=== PATIENT | male | born 1960 | race Caucasian/White ===

== ENCOUNTER 2016-08-24 16:19 | Emergency (ER) | payer BC ==
[~2016-08-24 16:19] MED LIST: /CELE20CA PO; ADVIL; AMBI10TA OR; AUGM875T27 PO; BISO10TA2 OR; BISOPROLOL PO; COLA50CA3 PO; OXYC-208 PO; PAROXITINE PO; PAXI40TA OR; PERC5TAB8 OR; PRED20TA OR; PRIL40CA OR; TUSSSUS5 OR; VICODIN PO; ZITH500T OR; [UNRECOGNIZED DRUG - OTHER]; advil PO; astepro; bisoprolol PO
--- NOTE | 2016-08-24 17:10 | REP ---
CT Head without contrast HISTORY: Headache COMPARISON: None There is no intraparenchymal hemorrhage, acute infarct, mass or midline shift. The ventricular system is normal in appearance. There is no extra cerebral collection. There is no fracture. Mucosal thickening is present in the sphenoid sinus. IMPRESSION: There is no intracranial lesion. Signed by Huang Arauz MD 08/24/2016 04:59 P
--- NOTE | 2016-08-24 18:26 | REP ---
CT CERVICAL SPINE WITHOUT CONTRAST: HISTORY: Neck pain. There is no acute fracture or subluxation. Disc bulges are present at the C3-4 through C5-6 levels. There is minimal narrowing of the spinal canal. Uncinate process and or facet hypertrophy are present at the C2-3 through C5-6 levels. These findings produce minimal narrowing at the neural foramina. The C4-5 and C5-6 intervertebral discs are decreased in height consistent with disc degeneration. There is loss of the normal lordotic curve. IMPRESSION:1. There is no acute fracture or subluxation. 2. There is cervical spondylosis at the C2-3 through C5-6 levels. Signed by Huang Arauz MD 08/25/2016 08:47 A
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
== END 2016-08-24 19:06 | disposition home or self-care (01) ==
LOC: M ED 16:19
DX: S16.1XXA Strain of muscle, fascia and tendon at neck level, initial encounter (principal); H52.7 Unspecified disorder of refraction; E11.9 Type 2 diabetes mellitus without complications; K57.92 Diverticulitis of intestine, part unspecified, without perforation or abscess without bleeding; F41.9 Anxiety disorder, unspecified; I10 Essential (primary) hypertension; E78.00 Pure hypercholesterolemia, unspecified; G62.9 Polyneuropathy, unspecified; F17.210 Nicotine dependence, cigarettes, uncomplicated; Z79.899 Other long term (current) drug therapy; Z86.19 Personal history of other infectious and parasitic diseases; Z88.0 Allergy status to penicillin; V84.5XXA Driver of special agricultural vehicle injured in nontraffic accident, initial encounter; Y92.89 Other specified places as the place of occurrence of the external cause; Y93.89 Activity, other specified; Y99.9 Unspecified external cause status

== ENCOUNTER 2016-10-22 13:28 | Emergency (ER) | payer BC ==
[~2016-10-22] VITALS: Ht 185.4 cm; Wt 117.0 kg
[2016-10-22] MEDS ORDERED: LOSA100T36 (13:43)
[2016-10-22] MEDS ORDERED: METF500T4 (13:43)
[2016-10-22] MEDS ORDERED: GABA800T (13:43)
[2016-10-22] MEDS ORDERED: KETOROLAC 30 MG/ML VIAL (J1885) IV ONE (15:15)
[2016-10-22] MEDS ORDERED: ONDANSETRON 4MG/2ML VIAL (J2405) IV ONE ×2 (15:15→17:00)
[2016-10-22] MEDS ORDERED: GASTROGRAFIN SOLUTION 30ML PO ONE (15:35)
[2016-10-22] MEDS ORDERED: GASTROGRAFIN SOLUTION 30ML (Q9963) PO ONE (16:05)
[2016-10-22 16:06] LABS: ALBUMIN/GLOBULIN RATIO 1.11 (1.00-1.93); ALKALINE PHOSPHATASE 55 U/L (45-117); ALT/SGPT 47 U/L (12-78); AMYLASE 53 U/L (25-115); ANION GAP 8 MEQ/L (8-16); AST/SGOT 22 U/L (15-37); BILIRUBIN,DIRECT < 0.1 MG/DL (0.0-0.2); BILIRUBIN,TOTAL 0.3 MG/DL (0.2-1.0); BLOOD UREA NITROGEN 12 MG/DL (7-18); CALCIUM LEVEL 8.8 MG/DL (8.5-10.1); CARBON DIOXIDE LEVEL 26 MEQ/L (21-32); CHLORIDE LEVEL 106 MEQ/L (98-107); CREATININE FOR GFR 0.78 MG/DL (0.70-1.30); GLOMERULAR FILTRATION RATE > 60.0 (>56); GLUCOSE, FASTING 95 MG/DL (70-105); POTASSIUM SERUM 3.9 MEQ/L (3.5-5.1); SODIUM LEVEL 140 MEQ/L (136-145); TOTAL PROTEIN 7.6 GM/DL (6.4-8.2)
[2016-10-22 16:35] LABS: BASO % 0.3 % (0.0-1.0); EOS # 0.2 K/mm3 (0.0-0.50); EOS % 1.8 % (0.0-3.0); LARGE UNSTAINED CELL # 0.2 K/mm3 (0.0-0.4); LARGE UNSTAINED CELL % 1.9 % (0.0-4.0); LYMPH # 2.3 K/mm3 (1.5-4.5); LYMPH % 27.4 % (24.0-44.0); MEAN CORPUSCULAR HGB CONC 35.3 g/dl (32.0-36.5); MEAN CORPUSCULAR VOLUME 90.7 fl (80.0-96.0); MONO # 0.6 K/mm3 (0.0-0.8); NEUTROPHILS # 5.3 K/mm3 (1.8-7.7); NEUTROPHILS % 61.7 % (36.0-66.0); PLATELET COUNT, AUTOMATED 210 k/mm3 (150-450); RED CELL DISTRIBUTION WIDTH 13.3 % (11.5-14.5); WHITE BLOOD COUNT 8.5 K/mm3 (4.0-10.0)
[2016-10-22] MEDS ORDERED: MORPHINE 4 MG/ML 1ML SYRINGE IV ONE (16:45)
[2016-10-22] MEDS ORDERED: METOCLOPRAMIDE INJ 10MG/2ML VIAL (J2765) IV ONE (16:45)
[2016-10-22] MEDS ORDERED: NORC1TAB4 PO (17:38)
[2016-10-22] MEDS ORDERED: ZOFR4TAB3 PO (17:38)
[2016-10-22 17:51] VITALS: BP 142/72
--- NOTE | 2016-10-23 06:49 | REP ---
CT ABDOMEN AND PELVIS WITHOUT IV CONTRAST, WITH ORAL CONTRAST: CT abdomen and pelvis performed without IV contrast with sagittal and coronal reconstruction images performed. Comparison made with prior study of 04/06/2016. Mild bibasilar fibroatelectatic change is noted. There is a tiny subcentimeter nodular opacity in the lingula which is stable. Liver demonstrates a tiny cyst in the right lobe. Gallbladder is grossly unremarkable. There is no evidence of biliary dilatation. Spleen is unremarkable as are the adrenals and pancreas. There is a calculus in the upper pole of the right kidney 5 mm in diameter. There is no hydroureteronephrosis. There is mild atherosclerotic calcification of the abdominal aorta without aneurysm. There is no adenopathy. There is no free air or free fluid. No bowel wall thickening is seen. The appendix is normal. A few sigmoid diverticula are present. Metallic clips are seen in the anterior pelvis. Urinary bladder is mildly distended with no gross abnormality. IMPRESSION: Few diverticula of the sigmoid colon without evidence of acute diverticulitis. No free air or free fluid. There is an intrarenal calculus on the right 5 mm in diameter. No hydroureteronephrosis. Signed by Joshua Castro MD 10/23/2016 04:33 P
== END 2016-10-22 17:56 | disposition home or self-care (01) ==
LOC: M ED 15:14
DX: R10.31 Right lower quadrant pain (principal); R11.0 Nausea; K57.32 Diverticulitis of large intestine without perforation or abscess without bleeding; F41.9 Anxiety disorder, unspecified; F32.9 Major depressive disorder, single episode, unspecified; Z87.442 Personal history of urinary calculi; Z88.5 Allergy status to narcotic agent; Z88.0 Allergy status to penicillin; Z79.899 Other long term (current) drug therapy; Z79.84 Long term (current) use of oral hypoglycemic drugs
CPT/HCPCS: 74176; 80048; 80076; 81001; 82150; 83605; 83690; 85025; 86140; 96374; 96375; 96376; 99282; J1885; J2405; Q9963

== ENCOUNTER → 2016-11-07 | Outpatient (REF) | payer BC ==
[~2016-11-07] MED LIST changes: +GABA800T; +LOSA100T36; +METF500T4; +NORC1TAB4 PO; +ZOFR4TAB3 PO
== END ==
LOC: M LAB REF 14:13 → M LAB 14:28 → M LAB REF 11-08 08:35 → EDSTATUS 11-08 08:35
PROVIDERS: ATTEND Student in an Organized Health Care Education/Training Program
DX: R10.32 Left lower quadrant pain (principal)

== ENCOUNTER → 2016-12-25 | Outpatient (REF) | payer BC ==
[~2016-12-25] MED LIST changes: +AMLO10TA2; +ATOR1TAB19 PO; +DICY1CAP8 PO; +ESCI20TA PO; +FLOM5CAP PO; +GABA800T PO; +IBUP200C10 PO; +LOSA100T36 PO; +METF-699 PO; +PANT40TA2; +REGL10TA6 PO; +TYLE325T5 PO; +XIFA550T
== END ==
LOC: M SMT 13:07
PROVIDERS: ATTEND Nurse Practitioner Women's Health
DX: R39.198 Other difficulties with micturition (principal)

== ENCOUNTER 2016-12-28 13:01 | Emergency (ER) | payer BC ==
[~2016-12-28] VITALS: Ht 182.9 cm; Wt 118.2 kg
[~2016-12-28 13:01] MED LIST changes: -AMLO10TA2; -ATOR1TAB19 PO; -DICY1CAP8 PO; -ESCI20TA PO; -FLOM5CAP PO; -GABA800T PO; -IBUP200C10 PO; -LOSA100T36 PO; -METF-699 PO; -PANT40TA2; -REGL10TA6 PO; -TYLE325T5 PO; -XIFA550T
[2016-12-28] MEDS ORDERED: ESCI20TA PO (13:12)
[2016-12-28] MEDS ORDERED: ATOR1TAB19 PO (13:12)
[2016-12-28] MEDS ORDERED: MORPHINE 4 MG/ML 1ML SYRINGE IV ONE ×2 (14:15→16:45)
[2016-12-28] MEDS ORDERED: ONDANSETRON 4MG/2ML VIAL (J2405) IV ONE ×2 (14:15→19:30)
[2016-12-28] MEDS ORDERED: NS 1,000 ML IV ONE (14:15)
[2016-12-28 15:22] LABS: BASO # 0.1 K/mm3 (0.0-0.2); BASO % 1.1 % (0.0-1.0); EOS # 0.1 K/mm3 (0.0-0.50); EOS % 0.7 % (0.0-3.0); LARGE UNSTAINED CELL # 0.2 K/mm3 (0.0-0.4); LYMPH # 2.1 K/mm3 (1.5-4.5); LYMPH % 20.9 % (24.0-44.0); MEAN CORPUSCULAR HEMOGLOBIN 32.7 pg (27.0-33.0); MEAN CORPUSCULAR HGB CONC 35.9 g/dl (32.0-36.5); MEAN CORPUSCULAR VOLUME 91.2 fl (80.0-96.0); MONO # 0.6 K/mm3 (0.0-0.8); MONO % 5.6 % (0.0-5.0); NEUTROPHILS # 6.9 K/mm3 (1.8-7.7); NEUTROPHILS % 69.7 % (36.0-66.0); PLATELET COUNT, AUTOMATED 211 k/mm3 (150-450); RED CELL DISTRIBUTION WIDTH 13.4 % (11.5-14.5); WHITE BLOOD COUNT 9.9 K/mm3 (4.0-10.0)
[2016-12-28 16:13] LABS: ALBUMIN 4.2 GM/DL (3.2-5.2); ALBUMIN/GLOBULIN RATIO 1.14 (1.00-1.93); ALKALINE PHOSPHATASE 49 U/L (45-117); ALT/SGPT 29 U/L (12-78); ANION GAP 11 MEQ/L (8-16); AST/SGOT 17 U/L (15-37); BILIRUBIN,DIRECT 0.1 MG/DL (0.0-0.2); BILIRUBIN,TOTAL 0.7 MG/DL (0.2-1.0); BLOOD UREA NITROGEN 25 MG/DL (7-18); CALCIUM LEVEL 9.1 MG/DL (8.5-10.1); CARBON DIOXIDE LEVEL 21 MEQ/L (21-32); CHLORIDE LEVEL 109 MEQ/L (98-107); CREATININE FOR GFR 0.73 MG/DL (0.70-1.30); GLOMERULAR FILTRATION RATE > 60.0 (>56); GLUCOSE, FASTING 93 MG/DL (70-105); POTASSIUM SERUM 3.7 MEQ/L (3.5-5.1); SODIUM LEVEL 141 MEQ/L (136-145); TOTAL PROTEIN 7.9 GM/DL (6.4-8.2)
[2016-12-28] MEDS ORDERED: GASTROGRAFIN SOLUTION 30ML PO ONE (16:45)
[2016-12-28] MEDS ORDERED: GASTROGRAFIN SOLUTION 30ML (Q9963) PO ONE (17:15)
[2016-12-28] MEDS ORDERED: ISOVUE-370 76% 100ML VIAL (Q9967) As Ordered ONE (17:56)
--- NOTE | 2016-12-28 18:38 | REP ---
Clinical: Lower abdominal pain. Technique: Axial contrast enhanced images from the lung bases to the pubic symphysis using oral and 100 ml Isovue 370 intravenous contrast material with coronal and sagittal re-formations. Comparison: 10/22/2016. Findings: Lung bases demonstrate mild posterobasilar dependent changes. Visualized heart and pericardium normal. Fatty infiltration to the liver without focal hepatic lesion identified. Spleen, pancreas, gallbladder, bilateral adrenal glands and kidneys are normal. The enteric system is without obstruction or acute inflammatory process. Normal terminal ileum and appendix identified in the right lower quadrant. Pelvis demonstrates normal bladder and age appropriate prostate/seminal vesicles. Postsurgical changes involving the anterior abdominal wall appear chronic. No ascites. No free air. No adenopathy. Abdominal aorta and vasculature without aneurysm or dissection. Musculoskeletal structures without focal osseous abnormality. Impression: 1. Hepatosteatosis. 2. No free fluid or acute abdominopelvic pathology appreciated. Signed by Matt Gallego MD 12/28/2016 06:29 P
[2016-12-28] MEDS ORDERED: ZOFR4TAB3 PO (19:54)
[2016-12-28 20:02] VITALS: BP 131/74
[2016-12-29] MEDS ORDERED: LOSA100T36 PO (14:03)
[2016-12-29] MEDS ORDERED: GABA800T PO (14:03)
[2016-12-29] MEDS ORDERED: METF-699 PO (14:03)
[2016-12-29] MEDS ORDERED: FLOM5CAP PO (14:03)
[2016-12-29] MEDS ORDERED: IBUP200C10 PO (14:05)
[2016-12-29] MEDS ORDERED: TYLE325T5 PO (14:05)
== END 2016-12-28 20:08 | disposition home or self-care (01) ==
LOC: M ED 13:01
DX: R11.10 Vomiting, unspecified (principal); R10.32 Left lower quadrant pain; E11.9 Type 2 diabetes mellitus without complications; F17.210 Nicotine dependence, cigarettes, uncomplicated; Z87.442 Personal history of urinary calculi; Z88.0 Allergy status to penicillin; Z88.5 Allergy status to narcotic agent; Z79.84 Long term (current) use of oral hypoglycemic drugs
CPT/HCPCS: 74177; 80048; 80076; 81001; 83690; 85025; 87086; 93041; 96374; 96375; 96376; 99285; J2405; Q9963; Q9967

== ENCOUNTER 2016-12-29 10:32 | Observation (INO) | payer BC ==
[~2016-12-29] VITALS: Ht 185.4 cm; Wt 114.5 kg
[~2016-12-29 10:32] MED LIST changes: +ATOR1TAB19 PO; +ESCI20TA PO
[2016-12-29] MEDS ORDERED: ONDANSETRON 4MG/2ML VIAL (J2405) IV ONE (11:00)
[2016-12-29] MEDS: MORPHINE 4 MG/ML 1ML SYRINGE IV PRN ×2 (11:38→13:32)
[2016-12-29] MEDS: NS 1,000 ML IV SCH ×2 (11:38→21:10)
[2016-12-29 11:41] LABS: BASO % 0.4 % (0.0-1.0); EOS # 0.1 K/mm3 (0.0-0.50); EOS % 0.8 % (0.0-3.0); LARGE UNSTAINED CELL # 0.1 K/mm3 (0.0-0.4); LARGE UNSTAINED CELL % 1.7 % (0.0-4.0); LYMPH # 1.8 K/mm3 (1.5-4.5); LYMPH % 21.3 % (24.0-44.0); MEAN CORPUSCULAR HEMOGLOBIN 31.5 pg (27.0-33.0); MEAN CORPUSCULAR HGB CONC 33.8 g/dl (32.0-36.5); MEAN CORPUSCULAR VOLUME 93.1 fl (80.0-96.0); MONO # 0.4 K/mm3 (0.0-0.8); MONO % 4.9 % (0.0-5.0); NEUTROPHILS # 5.4 K/mm3 (1.8-7.7); NEUTROPHILS % 70.9 % (36.0-66.0); PLATELET COUNT, AUTOMATED 205 k/mm3 (150-450); RED CELL DISTRIBUTION WIDTH 13.8 % (11.5-14.5); WHITE BLOOD COUNT 7.6 K/mm3 (4.0-10.0)
[2016-12-29 12:23] LABS: ALBUMIN 3.5 GM/DL (3.2-5.2); ALKALINE PHOSPHATASE 41 U/L (45-117); ALT/SGPT 27 U/L (12-78); ANION GAP 8 MEQ/L (8-16); AST/SGOT 15 U/L (15-37); BILIRUBIN,DIRECT 0.2 MG/DL (0.0-0.2); BILIRUBIN,TOTAL 0.8 MG/DL (0.2-1.0); BLOOD UREA NITROGEN 21 MG/DL (7-18); CALCIUM LEVEL 8.1 MG/DL (8.5-10.1); CARBON DIOXIDE LEVEL 23 MEQ/L (21-32); CHLORIDE LEVEL 112 MEQ/L (98-107); CREATININE FOR GFR 0.65 MG/DL (0.70-1.30); GLOMERULAR FILTRATION RATE > 60.0 (>56); GLUCOSE, FASTING 89 MG/DL (70-105); POTASSIUM SERUM 3.5 MEQ/L (3.5-5.1); SODIUM LEVEL 143 MEQ/L (136-145)
[2016-12-29] MEDS ORDERED: SODIUM CHLORIDE 0.9% 1000 ML IV ONE (13:15)
[2016-12-29] MEDS ORDERED: METF-699 PO (14:03)
[2016-12-29] MEDS ORDERED: GABA800T PO (14:03)
[2016-12-29] MEDS ORDERED: FLOM5CAP PO (14:03)
[2016-12-29] MEDS ORDERED: LOSA100T36 PO (14:03)
[2016-12-29] MEDS ORDERED: TYLE325T5 PO (14:05)
[2016-12-29] MEDS ORDERED: IBUP200C10 PO (14:05)
--- NOTE | 2016-12-29 14:54 | ECGEPIP ---
Stationary ECG Study [facility] - ED Test Date: 2016-12-29 Pat Name: LUDIVINA NAVARRO Department: Room: - Gender: M General Internal Medicine Doctor: FUDA : 1960 Requested By: Mimi Avery Order Number: [id number] Reading MD: Favian Mcgarry Measurements Intervals [place] Rate: 51 P: 45 RI: 192 QRS: -8 QRSD: 101 T: 20 QT: 437 QTc: 404 Interpretive Statements SINUS BRADYCARDIA Electronically Signed On 12-29-2016 14:54:46 EDT by Favian Mcgarry
[2016-12-29 15:23] LABS: METHADONE URINE NEGATIVE (NEGATIVE)
--- NOTE | 2016-12-29 15:28 | REP ---
Clinical: Vomiting. Technique: Upright view of the chest with supine and upright views of the abdomen and pelvis. Findings: There is a focal short segment of mucosal abnormality and luminal narrowing of the mid descending colon which remains unchanged compared to prior CT 12/28/16. Previously thought to be normal bowel peristalsis may be area of colitis versus malignancy. Correlation and followup recommended. No obstruction. No free air. Impression: Focal area of mucosal abnormality and narrowing in the mid descending colon. Findings suggest focal colitis versus malignancy and follow up correlation is recommended. Signed by Matt Gallego MD 12/29/2016 03:20 P
[2016-12-29] MEDS ORDERED: IBUPROFEN 800 MG TAB PO PRN (16:45)
[2016-12-29] MEDS ORDERED: ONDANSETRON 4MG/2ML VIAL (J2405) IV PRN (16:45)
[2016-12-29] MEDS ORDERED: ACETAMINOPHEN 325 MG TAB PO PRN (16:45)
[2016-12-29] MEDS ORDERED: ACETAMINOPHEN TAB 650MG DOSE (2X325MG) PO PRN (16:45)
[2016-12-29] MEDS ORDERED: METOCLOPRAMIDE INJ 10MG/2ML VIAL (J2765) IV PRN (17:00)
[2016-12-29] MEDS ORDERED: DEXTROSE 50% 50 ML SYRINGE IV PRN (17:30)
[2016-12-29] MEDS ORDERED: GLUCOSE 4 GM CHEW TABLET PO PRN (17:30)
[2016-12-29] MEDS ORDERED: GLUCAGON FOR INJ 1 MG VIAL (J1610) SC PRN (17:30)
--- NOTE | 2016-12-29 17:32 | HPEPDOC ---
General Date of Admission 12/29/2016 Primary Care Physician: SANDOVAL CHATMAN DO Chief Complaint The patient is a 56-year-old male admitted with a reason for visit of Vomiting. Source: Patient Exam Limitations: No limitations History of Present Illness Mr. Albarran is a 56-year-old male who has been suffering from nausea, vomiting, diarrhea ever since Wednesday evening. He also admits to intermittent fevers, shaking chills, night sweats. He states that he worked all day at the "[employer]" in [place], he does not report eating or drinking anything out of the ordinary, he denies any sick contacts. He states that when he got home he began to have some indigestion, and then subsequently developed nausea and vomiting that has persisted throughout the week. He has not been able to tolerate anything by mouth, not even liquids ever since Wednesday. He did present to the emergency department yesterday, and it was their recommendation that he be admitted but he did not wish to do this and stated that if he still felt poorly he will come back. He experienced no improvement in the last 24 hours therefore he returned to the emergency department. CT scan from yesterday was unrevealing for any etiology, however he does appear to have some mural thickening of the descending colon. X-ray of the abdomen does show some narrowing of the descending colon as well. Home Medications Scheduled Atorvastatin Calcium (Atorvastatin Calcium) 10 Mg Tab, 10 MG PO DAILY, (Reported ) Escitalopram Oxalate (Escitalopram Oxalate) 20 Mg Tab, 20 MG PO DAILY, (Reported ) Gabapentin (Gabapentin) 800 Mg Tab, 800 MG PO TID, (Reported) Losartan Potassium (Losartan Potassium) 100 Mg Tab, 100 MG PO DAILY, (Reported) Metformin Hydrochloride (Metformin HCl ER) 500 Mg Tab, 500 MG PO DAILY, ( Reported) Tamsulosin Hydrochloride (Flomax) 0.4 Mg Cap, 0.4 MG PO DAILY, (Reported) Scheduled PRN Acetaminophen (Tylenol) 325 Mg Tab, 650 MG PO Q4H PRN for PAIN, (Reported) Ibuprofen (Ibuprofen) 200 Mg Cap, 800 MG PO Q8H PRN for PAIN, (Reported) Allergies Coded Allergies: Penicillins (Verified Allergy, Unknown, 12/28/16) Penicillins Cross Reactors (Verified Allergy, Unknown, 12/28/16) Morphine (Verified Adverse Reaction, Mild, NAUSEA, 12/28/16) Past Medical History Medical History Diabetes mellitus type 2, only taking metformin once a day Anxiety and depression Benign prostatic hypertrophy Hypercholesterolemia Diabetic neuropathy Hypertension Surgical History Right shoulder rotator cuff 2 Abdominal hernia 2 Low back surgery Family History His father and his grandfather were diabetic, otherwise he denies any family history of stroke, NH, or cancer. Social History * Smoker: greater than 1 pack/day (smokes 2 pack per day) Alcohol: Denies Drugs: denies Recent Travel/Sick Contacts: Denies: Recent travel, Recent sick contacts Pets in the home: Dog(s), Cat(s), Other (fishbowl) Psychosocial History: Anxiety, Depression Lives at home alone. He is from his , he has 3 kids who are all healthy. Review of Symptoms Constitutional: Reports: Chills, Fever, Malaise, Night Sweats, Weakness, Fatigue, Lethargy ENT: Denies: Head Aches, Ear Pain, Dysphagia Skin: Denies: Rash, Lesions, Breakdown Pulmonary: Denies: Dyspnea, Cough Cardiovascular: Denies: Chest Pain, Palpitations, Orthopnea, Paroxysmal Noc. Dyspnea, Lt Headedness Gastrointestinal: Reports: Nausea, Vomiting, Abdominal Pain, Diarrhea, Denies: Hematochezia Genitourinary: Reports: Dysuria, Retention, Denies: Frequency, Incontinence, Hematuria Hematologic: Denies: Bruising, Bleeding Excessively Neurological: Denies: Weakness, Numbness, Change in speech, Confusion Psych: Reports: Mood Normal, Denies: Depression, Memory Issues Physical Examination General Exam: Positive: Alert, Cooperative, Mild Distress Eye Exam: Positive: PERRLA, Conjunctiva & lids normal, EOMI, Negative: Sclera icteric ENT Exam: Positive: Atraumatic, Mucous membr. moist/pink, Pharynx Normal Neck Exam: Positive: Supple, Negative: JVD, thyromegaly Chest Exam: Positive: Clear to auscultation, Normal air movement Heart Exam: Positive: Bradycardic, Regular Rhythm, Normal S1, Normal S2, Negative: Murmurs, Rubs Telemetry: Positive: Bradycardia Abdomen Exam: Positive: BS Hyperactive, Soft, Tenderness, Negative: Hepatospenomegaly, Mass Extremity Exam: Positive: Normal pulses, Negative: Clubbing, Cyanosis, Edema Skin Exam: Positive: Nl turgor and temperature, Negative: Breakdown, Lesion Neuro Exam: Positive: Normal Speech, Cranial Nerves 3-12 NL Psych Exam: Positive: Mental status NL, Mood NL, Oriented x 3 Vital Signs Vital Signs Date Time Temp Pulse Resp B/P (MAP) Pulse Ox O2 Delivery O2 Flow Rate FiO2 12/29/16 15:34 57 16 116/69 (85) 98 Room Air 12/29/16 14:32 98.7 Laboratory Data Labs 24H Laboratory Tests 2 12/29/16 11:32: White Blood Count 7.6, Red Blood Count 5.07, Hemoglobin 16.0, Hematocrit 47.2, Mean Corpuscular Volume 93.1, Mean Corpuscular Hemoglobin 31.5, Mean Corpuscular Hemoglobin Concent 33.8, Red Cell Distribution Width 13.8, Platelet Count 205, Neutrophils (%) (Auto) 70.9H, Lymphocytes (%) (Auto) 21.3L, Monocytes (%) (Auto) 4.9, Eosinophils (%) (Auto) 0.8, Basophils (%) (Auto) 0.4, Neutrophils # (Auto) 5.4, Lymphocytes # (Auto) 1.8, Monocytes # (Auto) 0.4, Eosinophils # (Auto) 0.1, Basophils # (Auto) 0.0, Large Unclassified Cells % 1.7 , Large Unclassified Cells # 0.1, Anion Gap 8, Glomerular Filtration Rate > 60.0 , Calcium Level 8.1L, Aspartate Amino Transf (AST/SGOT) 15, Alanine Aminotransferase (ALT/SGPT) 27, Alkaline Phosphatase 41L, Total Bilirubin 0.8, Direct Bilirubin 0.2, Total Creatine Kinase 133, Creatine Kinase MB 1.7, Creatine Kinase MB Relative Index 1.27, Troponin I < 0.02, Total Protein 7.0, Albumin 3.5, Albumin/Globulin Ratio 1.00, Lipase 246 12/29/16 13:26: Lactic Acid Level 0.7 12/29/16 14:42: Urine Appearance CLEAR, Urine Color YELLOW, Urine pH 6.0, Urine Specific [place] 1.023, Urine Protein NEGATIVE, Urine Glucose (UA) NEGATIVE, Urine Ketones TRACEH, Urine Urobilinogen 2.0H, Urine Bilirubin NEGATIVE, Urine Leukocyte Esterase NEGATIVE, Urine Blood 1+H, Urine Nitrite NEGATIVE, Urine WBC (Auto) 0, Urine RBC (Auto) 1, Urine Hyaline Casts (Auto) 0, Urine Bacteria (Auto ) NEGATIVE, Urine Squamous Epithelial Cells 0, Urine Mucus (Auto) SMALL, Urine Sperm (Auto) , Urine Amphetamines Screen NEGATIVE, Urine Benzodiazepines Screen NEGATIVE, Urine Opiates Screen POSITIVEH, Urine Methadone Screen NEGATIVE, Urine Barbiturates Screen NEGATIVE, Urine Phencyclidine Screen NEGATIVE, Urine Cocaine Metabolite Screen NEGATIVE, Urine Cannabinoids Screen POSITIVEH CBC/BMP Laboratory Tests 12/29/16 11:32 Red Blood Count 5.07, Mean Corpuscular Volume 93.1, Mean Corpuscular Hemoglobin 31.5, Mean Corpuscular Hemoglobin Concent 33.8, Red Cell Distribution Width 13.8 , Neutrophils (%) (Auto) 70.9 H, Lymphocytes (%) (Auto) 21.3 L, Monocytes (%) ( Auto) 4.9, Eosinophils (%) (Auto) 0.8, Basophils (%) (Auto) 0.4, Neutrophils # ( Auto) 5.4, Lymphocytes # (Auto) 1.8, Monocytes # (Auto) 0.4, Eosinophils # (Auto ) 0.1, Basophils # (Auto) 0.0 Problems (1) Intractable vomiting with nausea Status: Acute (2) Dehydration Status: Acute (3) LLQ abdominal pain Status: Acute (4) Anxiety and depression Status: Chronic Problem Text: Continue with home dose of Lexapro (5) BPH (benign prostatic hyperplasia) Status: Chronic Problem Text: Continue with Flomax (6) Hypertension Status: Chronic Problem Text: Continue home dose of losartan (7) Diabetes mellitus type 2 in obese Status: Chronic (8) Obesity (BMI 30-39.9) Status: Chronic (9) Diabetic neuropathy Status: Chronic Problem Text: Continue with home dose of gabapentin Plan / VTE VTE Prophylaxis Ordered?: Yes (Lovenox) Plan Plan Will admit the patient to [facility]. He has an elevated BUN to creatinine ratio which along with his history would indicate that he is dehydrated. We'll start him on normal saline at 100 mL per hour. 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 He reports that this does not feel like his past episodes of C. difficile colitis however. I suspect that he most likely has descending colitis secondary to a viral pathogen, but we'll check a GI panel to determine the etiology. There is also a possibility that this may be due to a diabetic gastroparesis as well, therefore I will order Reglan for treatment of his nausea. There is some mural thickening on CT, and some narrowing noted on his abdominal plain films, if his clinical condition does not improve by morning, may consider referral to GI or general surgery for evaluation for colonoscopy. He did have a screening colonoscopy approximately [address] Chaidez at which time he also did have bleeding. He did have nonbleeding internal hemorrhoids at that time, but the remainder was unremarkable with the recommended follow-up of 5-10 years. We'll keep him nothing by mouth at the current time, but he may advance his diet as tolerated. We will hold his home dose of metformin and cover him with sliding scale insulin while he is inpatient. I have seen and examined the patient, and discussed the case with the resident. I agree with the following assessment mentioned above. Surgical consult recommended in AM for abnormal abdominal xray and need for malignancy evaluation. LUIS A CLAY DO Dec 29, 2016 17:31 LULÚ SUE MD Dec 30, 2016 12:04
[2016-12-29 20:15] VITALS: BP 147/89
[2016-12-29] MEDS: GABAPENTIN 400 MG CAP PO SCH (21:08)
[2016-12-29] MEDS: MORPHINE 2 MG/ML 1ML SYRINGE IV PRN (21:09)
[2016-12-29] MEDS: ONDANSETRON 4MG/2ML VIAL (J2405) IV SCH (21:09)
[2016-12-30] VITALS: BP 122/88
[2016-12-30] MEDS: MORPHINE 2 MG/ML 1ML SYRINGE IV PRN ×5 (03:07→21:41)
[2016-12-30] MEDS: ONDANSETRON 4MG/2ML VIAL (J2405) IV SCH (03:08)
[2016-12-30] MEDS: NS 1,000 ML IV SCH ×2 (06:02→15:37)
[2016-12-30 07:33] LABS: MEAN CORPUSCULAR HEMOGLOBIN 32.4 pg (27.0-33.0); MEAN CORPUSCULAR VOLUME 92.6 fl (80.0-96.0); RED CELL DISTRIBUTION WIDTH 13.5 % (11.5-14.5); WHITE BLOOD COUNT 9.4 K/mm3 (4.0-10.0)
[2016-12-30 07:53] LABS: ANION GAP 10 MEQ/L (8-16); BLOOD UREA NITROGEN 18 MG/DL (7-18); CALCIUM LEVEL 8.3 MG/DL (8.5-10.1); CARBON DIOXIDE LEVEL 21 MEQ/L (21-32); CHLORIDE LEVEL 110 MEQ/L (98-107); GLOMERULAR FILTRATION RATE > 60.0 (>56); GLUCOSE, FASTING 80 MG/DL (70-105); SODIUM LEVEL 141 MEQ/L (136-145)
[2016-12-30 08:00] VITALS: BP 144/95
[2016-12-30] MEDS ORDERED: metFORMIN (GLUCOPHAGE) 500 MG TAB PO SCH (08:00)
[2016-12-30] MEDS: ESCITALOPRAM OXALATE 10 MG TAB (LEXAPRO) PO SCH (08:29)
[2016-12-30] MEDS: ENOXAPARIN 40 MG/0.4 ML SYRINGE (J1650) SC SCH (08:29)
[2016-12-30] MEDS: TAMSULOSIN 0.4 MG CAP PO SCH (08:30)
[2016-12-30] MEDS: LOSARTAN 50 MG TAB PO SCH (08:30)
[2016-12-30] MEDS: GABAPENTIN 400 MG CAP PO SCH ×3 (08:30→20:40)
[2016-12-30] MEDS: ATORVASTATIN 10 MG TAB PO SCH (08:30)
--- NOTE | 2016-12-30 14:01 | IPNPDOC ---
Subjective Date Seen The patient was seen on 12/30/16. Subjective Chief Complaint/HPI The patient is a 56-year-old male admitted with a reason for visit of Intractable Vomiting With Nausea. Events since last encounter Mr. Albarran continues to be in a significant amount of abdominal pain, it is mostly localized to the left lower quadrant. He states that he did have some watery diarrhea throughout the night, but this was not collected for a sample, he has been instructed to notify the nurse he has bowel movements such that they may be able to send a sample to the lab. Otherwise, he did not have any fevers through the night. He states that he is no longer vomiting, but he still has some nausea. He did attempt a couple sips of water and desirae jonny, they stayed down but he was not ready to try any more than that. General: Reports: Fatigue, Malaise, Denies: Normal Appetite Constitutional: Reports: Chills, Malaise, Weakness, Denies: Fever, Night Sweats ENT: Denies: Head Aches, Sore Throat Skin: Denies: Rash, Lesions, Bruising Pulmonary: Denies: Dyspnea, Cough Cardiovascular: Denies: Chest Pain, Palpitations Gastrointestinal: Reports: Nausea, Abdominal Pain, Diarrhea, Denies: Vomiting, Constipation Neurological: Denies: Weakness Objective Physical Examination General Exam: Positive: Alert, Cooperative, Mild Distress Eye Exam: Positive: Conjunctiva & lids normal, EOMI, Negative: Sclera icteric ENT Exam: Positive: Atraumatic, Mucous membr. moist/pink, Pharynx Normal Neck Exam: Positive: Supple, Negative: JVD, thyromegaly Chest Exam: Positive: Clear to auscultation, Normal air movement, Negative: Rales, Rhonchi, Wheezing Heart Exam: Positive: Bradycardic, Regular Rhythm, Negative: Murmurs, Rubs Telemetry: Positive: Bradycardia Abdomen Exam: Positive: BS Hyperactive, Soft, Tenderness, Negative: Hepatospenomegaly, Mass Extremity Exam: Positive: Normal pulses, Negative: Clubbing, Cyanosis, Edema Skin Exam: Positive: Nl turgor and temperature, Negative: Breakdown, Lesion Neuro Exam: Positive: Normal Speech, Cranial Nerves 3-12 NL Psych Exam: Positive: Mental status NL, Mood NL, Oriented x 3 Assessment /Plan Problems (1) Intractable vomiting with nausea Status: Acute (2) Dehydration Status: Acute (3) LLQ abdominal pain Status: Acute (4) Anxiety and depression Status: Chronic Problem Text: Continue with home dose of Lexapro (5) BPH (benign prostatic hyperplasia) Status: Chronic Problem Text: Continue with Flomax (6) Hypertension Status: Chronic Problem Text: Continue home dose of losartan (7) Diabetes mellitus type 2 in obese Status: Chronic (8) Obesity (BMI 30-39.9) Status: Chronic (9) Diabetic neuropathy Status: Chronic Problem Text: Continue with home dose of gabapentin Plan/VTE VTE Prophylaxis Ordered?: Yes (Lovenox) Plan Due to his past history of multiple episodes of C. difficile colitis, and he is afebrile with no leukocytosis, we will not administer antibiotics at this time. GI panel still pending. Even if he does come back positive for C. difficile colitis, I do not think he would be a good idea to give antibiotics as he has had multiple episodes in the past, therefore our next plan of action would be to contact GI for evaluation for stool transplant. Otherwise, in the meantime we will continue with normal saline rehydration and bowel rest. He is allowed to advance his diet as tolerated. His BUN did improve from 21 to 18, but he still maintains a greater than 2:1 BUN to creatinine ratio, indicating dehydration. We also went down to radiology to discuss his radiographic findings. It is more suggestive of colonic spasm/peristalsis than actual mass effect when looking at his CT scans from the ED visit prior to his admission now, as well as compared to last March and december. He also had a colonoscopy approximately 6 years ago which showed internal hemorrhoids, but was otherwise completely benign, therefore it is unlikely that he should have a colonic tumor grow this quickly. That being said, I would still recommend that he have a colonoscopy as an outpatient once his current acute symptoms have improved. VS, I&O, 24H, Fishbone Vital Signs/I&O Vital Signs Date Time Temp Pulse Resp B/P (MAP) Pulse Ox O2 Delivery O2 Flow Rate FiO2 12/30/16 12:09 18 12/30/16 08:30 144/95 12/30/16 08:15 Room Air 12/30/16 08:00 98.0 69 96 I&O- Last 24 Hours up to 6 AM 12/30/16 06:00 Intake Total 1410 ml Output Total 300 ml Balance 1110 ml Laboratory Data 24H LABS Laboratory Tests 2 12/29/16 14:42: Urine Appearance CLEAR, Urine Color YELLOW, Urine pH 6.0, Urine Specific [place] 1.023, Urine Protein NEGATIVE, Urine Glucose (UA) NEGATIVE, Urine Ketones TRACEH, Urine Urobilinogen 2.0H, Urine Bilirubin NEGATIVE, Urine Leukocyte Esterase NEGATIVE, Urine Blood 1+H, Urine Nitrite NEGATIVE, Urine WBC (Auto) 0, Urine RBC (Auto) 1, Urine Hyaline Casts (Auto) 0, Urine Bacteria (Auto ) NEGATIVE, Urine Squamous Epithelial Cells 0, Urine Mucus (Auto) SMALL, Urine Sperm (Auto) , Urine Amphetamines Screen NEGATIVE, Urine Benzodiazepines Screen NEGATIVE, Urine Opiates Screen POSITIVEH, Urine Methadone Screen NEGATIVE, Urine Barbiturates Screen NEGATIVE, Urine Phencyclidine Screen NEGATIVE, Urine Cocaine Metabolite Screen NEGATIVE, Urine Cannabinoids Screen POSITIVEH 12/29/16 17:28: Bedside Glucose (Misc Panel) 73 12/29/16 20:59: Total Creatine Kinase 127, Creatine Kinase MB 1.4, Creatine Kinase MB Relative Index 1.10, Troponin I < 0.02 12/30/16 03:01: Bedside Glucose (Misc Panel) 84 12/30/16 06:48: Anion Gap 10, Glomerular Filtration Rate > 60.0, Blood Urea Nitrogen 18, Creatinine 0.70, Sodium Level 141, Potassium Level 4.0, Chloride Level 110H, Carbon Dioxide Level 21, Calcium Level 8.3L, Total Creatine Kinase 94, Creatine Kinase MB 1.3, Creatine Kinase MB Relative Index 1.38, Troponin I < 0.02 12/30/16 12:09: Bedside Glucose (Misc Panel) 83 CBC/BMP Laboratory Tests 12/30/16 06:48 Red Blood Count 4.96, Mean Corpuscular Volume 92.6, Mean Corpuscular Hemoglobin 32.4, Mean Corpuscular Hemoglobin Concent 35.0, Red Cell Distribution Width 13.5 , Calcium Level 8.3 L, Total Creatine Kinase 94 Microbiology Microbiology 12/30/16 Gastrointestinal Tract Panel (PCR) - Final, Complete GME ATTESTATION GME ATTESTATION My preceptor for this patient encounter was physically present in the building during the encounter and was fully available. As needed, all aspects of the patient interview, examination, medical decision making process, and medical care plan development were reviewed and approved by the preceptor. Preceptor is aware and concurs with the plan as stated in the body of this note and will attest to such by his/her cosignature. ATTENDING NOTE I have both independently examined this patient as well as reviewed the note. I have discussed in detail with the resident the findings and plan of treatment as documented in the residents note. I will continue to follow the patient and offer further guidance to the patients care as necessary during this hospital stay. LUIS A Garcia MD, DO Dec 30, 2016 14:01 JAIR MADRIGAL MD Dec 31, 2016 17:34
[2016-12-30 16:00] VITALS: BP 127/65
[2016-12-30] MEDS: LACTOBACILLUS ACIDOPHILUS CAP (BACID) PO SCH ×2 (16:26→20:40)
[2016-12-30] MEDS: HumaLOG INSULIN (NovoLOG) PER UNIT SC SCH (17:30)
[2016-12-30 20:00] VITALS: BP 105/69
[2016-12-30] MEDS ORDERED: HumaLOG INSULIN (NovoLOG) PER UNIT SC SCH (21:00)
[2016-12-31] VITALS: BP 103/63
[2016-12-31] MEDS: NS 1,000 ML IV SCH (02:12)
[2016-12-31] MEDS: MORPHINE 2 MG/ML 1ML SYRINGE IV PRN (03:02)
[2016-12-31 07:02] LABS: ANION GAP 4 MEQ/L (8-16); BLOOD UREA NITROGEN 9 MG/DL (7-18); CALCIUM LEVEL 8.8 MG/DL (8.5-10.1); CARBON DIOXIDE LEVEL 30 MEQ/L (21-32); CHLORIDE LEVEL 109 MEQ/L (98-107); CREATININE FOR GFR 0.85 MG/DL (0.70-1.30); GLOMERULAR FILTRATION RATE > 60.0 (>56); GLUCOSE, FASTING 85 MG/DL (70-105); MEAN CORPUSCULAR HEMOGLOBIN 31.7 pg (27.0-33.0); MEAN CORPUSCULAR HGB CONC 34.6 g/dl (32.0-36.5); MEAN CORPUSCULAR VOLUME 91.6 fl (80.0-96.0); RED CELL DISTRIBUTION WIDTH 13.6 % (11.5-14.5); SODIUM LEVEL 143 MEQ/L (136-145); WHITE BLOOD COUNT 6.6 K/mm3 (4.0-10.0)
[2016-12-31] MEDS: HumaLOG INSULIN (NovoLOG) PER UNIT SC SCH (07:30)
[2016-12-31] MEDS ORDERED: DICYCLOMINE 10 MG CAP PO PRN (07:45)
[2016-12-31 08:00] VITALS: BP 117/85
[2016-12-31] MEDS: ENOXAPARIN 40 MG/0.4 ML SYRINGE (J1650) SC SCH (08:30)
[2016-12-31] MEDS: LACTOBACILLUS ACIDOPHILUS CAP (BACID) PO SCH (08:30)
[2016-12-31] MEDS: GABAPENTIN 400 MG CAP PO SCH (08:30)
[2016-12-31] MEDS: TAMSULOSIN 0.4 MG CAP PO SCH (08:30)
[2016-12-31 08:31] VITALS: BP 103/63
[2016-12-31] MEDS: LOSARTAN 50 MG TAB PO SCH (08:31)
[2016-12-31] MEDS: ESCITALOPRAM OXALATE 10 MG TAB (LEXAPRO) PO SCH (08:32)
[2016-12-31] MEDS: ATORVASTATIN 10 MG TAB PO SCH (08:32)
[2016-12-31] MEDS ORDERED: DICY1CAP8 PO (09:55)
--- NOTE | 2016-12-31 18:34 | DS.PDOC ---
Discharge Summary General Date of Admission Dec 29, 2016 at 17:17 Date of Discharge 12/31/2016 Discharge Summary PRIMARY CARE PHYSICIAN: Dr. Gallegos ATTENDING AT TIME OF DISCHARGE: Dr. Camara He DISCHARGE DIAGNOS(E)S: 1. Intractable vomiting with nausea 2. Dehydration 3. Left lower quadrant pain 4. Anxiety 5. Depression 6. Benign prostatic hypertrophy 7. Hypertension 8. Diabetes mellitus type 2 8. Obesity 9. Diabetic neuropathy HPI & HOSPITAL COURSE: Mr. Albarran is a 56-year-old male who presented to the hospital with intractable nausea and vomiting as well as abdominal pain left lower quadrant. Abdominal x-ray did show what appeared to be an abnormality in his descending colon, however when compared with a CT scan on the day prior, it appears that this is likely peristalsis/colonic spasm rather than a malignant etiology. Upon arrival he was found to be dehydrated with an elevated BUN to creatinine ratio, he was treated with normal saline. Opiates were used for pain control, however this was switched over to dicyclomine, and this appears to be efficacious. His nausea and vomiting completely resolved. He did eat a regular breakfast this morning without any issues. He states that he is feeling much better this morning, and feels that he is ready to go home. He still does have some abdominal pain, mostly localized left lower quadrant, but states that it is tolerable. Otherwise, the remainder of his review of systems is negative. PHYSICAL EXAMINATION ON DISCHARGE: GENERAL: Awake, alert, oriented 3. He is in no acute distress. CARDIOVASCULAR EXAMINATION: Regular rate and rhythm, with no rubs, gallops, or murmur. RESPIRATORY EXAMINATION: Clear to auscultation bilaterally with no wheezes, rales, or rhonchi. ABDOMINAL EXAMINATION: Soft, nontender, nondistended. Bowel sounds hyperactive. EXTREMITIES: No clubbing or edema noted. 2+ pulses in the radial bilaterally. DISPOSITION: Home DISCHARGE INSTRUCTIONS: Follow-up with primary care provider Dr. Gallegos within 7-10 days. It was also recommended that he obtain an outpatient colonoscopy for evaluation of the segment in question in the descending colon, therefore he'll be set up with an office visit with Dr. Chaidez next week, and they can set up to have a colonoscopy performed after his acute symptoms have resolved. If symptoms return, or if you experience worsening of your symptoms, please call your doctor or return to the emergency department. ITEMS THAT NEED OUTPATIENT FOLLOWUP: Recommend outpatient colonoscopy. My preceptor for this patient encounter was physically present in the building during the encounter and was fully available. As needed, all aspects of the patient interview, examination, medical decision making process, and medical care plan development were reviewed and approved by the preceptor. Preceptor is aware and concurs with the plan as stated in the body of this note and will attest to such by his/her cosignature. Vital Signs/I&Os Vital Signs Date Time Temp Pulse Resp B/P (MAP) Pulse Ox O2 Delivery O2 Flow Rate FiO2 12/31/16 08:31 103/63 12/31/16 08:00 Room Air 12/31/16 08:00 97.8 65 20 96 I&O- Last 24 Hours up to 6 AM 12/31/16 06:00 Intake Total 3480 ml Output Total 1725 ml Balance 1755 ml Laboratory Data Labs 24H Laboratory Tests 2 12/30/16 20:17: Bedside Glucose (Misc Panel) 84 12/31/16 06:14: Anion Gap 4L, Glomerular Filtration Rate > 60.0, Blood Urea Nitrogen 9, Creatinine 0.85, Sodium Level 143, Potassium Level 4.0, Chloride Level 109H, Carbon Dioxide Level 30, Calcium Level 8.8 CBC/BMP Laboratory Tests 12/31/16 06:14 Red Blood Count 4.88, Mean Corpuscular Volume 91.6, Mean Corpuscular Hemoglobin 31.7, Mean Corpuscular Hemoglobin Concent 34.6, Red Cell Distribution Width 13.6 , Calcium Level 8.8 FSBS Laboratory Tests Test 12/30/16 20:17 Range/Units Bedside Glucose (Misc Panel) 84 70-105 MG/DL Microbiology Microbiology 12/30/16 Gastrointestinal Tract Panel (PCR) - Final, Complete Discharge Medications Scheduled Atorvastatin Calcium (Atorvastatin Calcium) 10 Mg Tab, 10 MG PO DAILY, (Reported ) Escitalopram Oxalate (Escitalopram Oxalate) 20 Mg Tab, 20 MG PO DAILY, (Reported ) Gabapentin (Gabapentin) 800 Mg Tab, 800 MG PO TID, (Reported) Losartan Potassium (Losartan Potassium) 100 Mg Tab, 100 MG PO DAILY, (Reported) Metformin Hydrochloride (Metformin HCl ER) 500 Mg Tab, 500 MG PO DAILY, ( Reported) Tamsulosin Hydrochloride (Flomax) 0.4 Mg Cap, 0.4 MG PO DAILY, (Reported) Scheduled PRN Acetaminophen (Tylenol) 325 Mg Tab, 650 MG PO Q4H PRN for PAIN, (Reported) Dicyclomine HCl (Dicyclomine HCl) 10 Mg Cap, 10 MG PO TIDP PRN for CRAMPS Ibuprofen (Ibuprofen) 200 Mg Cap, 800 MG PO Q8H PRN for PAIN, (Reported) Allergies Coded Allergies: Penicillins (Verified Allergy, Unknown, 12/28/16) Penicillins Cross Reactors (Verified Allergy, Unknown, 12/28/16) Morphine (Verified Adverse Reaction, Mild, NAUSEA, 12/28/16) GME ATTESTATION GME ATTESTATION My preceptor for this patient encounter was physically present in the building during the encounter and was fully available. As needed, all aspects of the patient interview, examination, medical decision making process, and medical care plan development were reviewed and approved by the preceptor. Preceptor is aware and concurs with the plan as stated in the body of this note and will attest to such by his/her cosignature. ATTENDING NOTE I have both independently examined this patient as well as reviewed the note. I have discussed in detail with the resident the findings and plan of treatment as documented in the residents note. I will continue to follow the patient and offer further guidance to the patients care as necessary during this hospital stay. LUIS A Garcia MD, DO Dec 31, 2016 18:33 JAIR MADRIGAL MD Jan 01, 2017 15:47
== END 2016-12-31 10:30 | disposition home or self-care (01) ==
LOC: M ED 10:32 → M ED INP 17:17 → M PED 19:18
PROVIDERS: ADMIT Internal Medicine; ATTEND Hospitalist
DX: R11.2 Nausea with vomiting, unspecified (principal); E86.0 Dehydration; R10.32 Left lower quadrant pain; F41.9 Anxiety disorder, unspecified; F32.9 Major depressive disorder, single episode, unspecified; N40.0 Benign prostatic hyperplasia without lower urinary tract symptoms; I10 Essential (primary) hypertension; E66.9 Obesity, unspecified; E11.21 Type 2 diabetes mellitus with diabetic nephropathy; Z79.899 Other long term (current) drug therapy; Z88.0 Allergy status to penicillin; Z88.5 Allergy status to narcotic agent; Z79.84 Long term (current) use of oral hypoglycemic drugs
CPT/HCPCS: 36415; 74022; 80048; 80076; 80307; 81001; 82550; 82553; 83605; 83690; 85025; 85027; 87507; 93005; 93041; 96372; 96374; 96375; 96376; 99285; J1650; J2405

== ENCOUNTER → 2017-01-12 | Outpatient (REF) | payer BC ==
[~2017-01-12] MED LIST changes: +AMLO10TA2; +DICY1CAP8 PO; +FLOM5CAP PO; +GABA800T PO; +IBUP200C10 PO; +LOSA100T36 PO; +METF-699 PO; +PANT40TA2; +REGL10TA6 PO; +TYLE325T5 PO; +XIFA550T
== END ==
LOC: M LAB REF 17:02
PROVIDERS: ATTEND Internal Medicine
DX: R10.32 Left lower quadrant pain (principal); K52.3 Indeterminate colitis

== ENCOUNTER 2017-01-27 09:01 | Outpatient (CLI) | payer BC ==
[~2017-01-27] VITALS: Ht 185.4 cm; Wt 116.6 kg
[~2017-01-27 09:01] MED LIST changes: -AMLO10TA2; +LIDOCAINE 2% INJ 100 MG/5 ML SDV (FOR ANES.) As Ordered ONE; -PANT40TA2; +PROPOFOL 200 MG/20 ML VIAL As Ordered ONE; -REGL10TA6 PO; -XIFA550T
[2017-01-27] MEDS ORDERED: NS 1,000 ML IV ONE (10:15)
--- NOTE | 2017-01-27 10:30 | ROOR ---
Patient Name: Nolan Albarran Procedure Date: 01/27/2017 10:15 AM Date of : 1960 Age: 57 Room: [facility] Gender: Male Note Status: Finalized Procedure: Upper Endoscopy + Biopsies Indications: Generalized abdominal pain, Nausea with vomiting Providers: Jose uJan Chaidez MD Referring MD: Kayleen Gallegos DO Requesting Provider: Medicines: Monitored Anesthesia Care Complications: No immediate complications. Procedure: Pre-Anesthesia Assessment: - The heart rate, respiratory rate, oxygen saturations, blood pressure, adequacy of pulmonary ventilation, and response to care were monitored throughout the procedure. The Endoscope was introduced through the mouth, and advanced to the second part of duodenum. The upper GI endoscopy was accomplished without difficulty. The patient tolerated the procedure well. Findings: The Z-line was regular and was found 40 cm from the incisors. Localized mild inflammation characterized by congestion (edema), erythema, linear erosions and aphthous ulcerations was found in the gastric antrum. Biopsies were taken with a cold forceps for Helicobacter pylori testing. The exam of the duodenum was otherwise normal. Impression: - Z-line regular, 40 cm from the incisors. - Acute gastritis. Biopsied. - The examination was otherwise normal. Recommendation: - Patient has a contact number available for emergencies. The signs and symptoms of potential delayed complications were discussed with the patient. Return to normal activities tomorrow. Written discharge instructions were provided to the patient. - High fiber diet. - Discharge patient to home. - Continue present medications. - Await pathology results. - Telephone GI clinic for pathology results in 1 week. - Return to referring physician. - The findings and recommendations were discussed with the patient's family. Jose Juan Chaidez MD Jose Juan Chaidez MD 01/27/2017 10:30:11 AM This report has been signed electronically. Number of Addenda: 0 Note Initiated On: 01/27/2017 10:15 AM Estimated Blood Loss: Estimated blood loss: none.
--- NOTE | 2017-01-27 10:47 | ROOR ---
Patient Name: Nolan Albarran Procedure Date: 01/27/2017 10:16 AM Date of : 1960 Age: 57 Room: [facility] Gender: Male Note Status: Finalized Procedure: Total Colonoscopy to Cecum + Cold Snare Polypectomy Indications: Lower abdominal pain, Change in bowel habits Providers: Jose Juan Chaidez MD Referring MD: Kayleen Gallegos DO Requesting Provider: Medicines: Monitored Anesthesia Care Complications: No immediate complications. Procedure: Pre-Anesthesia Assessment: - The heart rate, respiratory rate, oxygen saturations, blood pressure, adequacy of pulmonary ventilation, and response to care were monitored throughout the procedure. The Colonoscope was introduced through the anus and advanced to the cecum, identified by appendiceal orifice and ileocecal valve. The colonoscopy was performed without difficulty. The patient tolerated the procedure well. The quality of the bowel preparation was good. Findings: The perianal and digital rectal examinations were normal. Non-bleeding internal hemorrhoids were found during retroflexion. The hemorrhoids were small and Grade I (internal hemorrhoids that do not prolapse). A few small-mouthed diverticula were found in the recto-sigmoid colon and sigmoid colon. A small polyp was found at 25 cm proximal to the anus. The polyp was sessile. The polyp was removed with a cold snare. Resection and retrieval were complete. The exam was otherwise without abnormality on direct and retroflexion views. Impression: - Non-bleeding internal hemorrhoids. - Diverticulosis in the recto-sigmoid colon and in the sigmoid colon. - One small polyp at 25 cm proximal to the anus, removed with a cold snare. Resected and retrieved. - The examination was otherwise normal on direct and retroflexion views. - The exam was otherwise normal to the cecum. Recommendation: - Patient has a contact number available for emergencies. The signs and symptoms of potential delayed complications were discussed with the patient. Return to normal activities tomorrow. Written discharge instructions were provided to the patient. - High fiber diet. - Discharge patient to home. - Continue present medications. - Await pathology results. - Telephone GI clinic for pathology results in 1 week. - Repeat colonoscopy in 5 years for surveillance based on pathology results. - Return to referring physician. - The findings and recommendations were discussed with the patient's family. Jose Juan Chaidez MD Jose Juan Chaidez MD 01/27/2017 10:46:26 AM This report has been signed electronically. Number of Addenda: 0 Note Initiated On: 01/27/2017 10:16 AM Estimated Blood Loss: Estimated blood loss: none.
[2017-01-27 11:00] VITALS: BP 147/104
== END 2017-01-27 11:20 | disposition home or self-care (01) ==
LOC: M OPP 09:01
PROVIDERS: ATTEND Internal Medicine Gastroenterology
DX: R10.30 Lower abdominal pain, unspecified (principal); R19.4 Change in bowel habit; D12.5 Benign neoplasm of sigmoid colon; K64.0 First degree hemorrhoids; K57.30 Diverticulosis of large intestine without perforation or abscess without bleeding; R19.7 Diarrhea, unspecified; Z86.010 Personal history of colon polyps; R10.84 Generalized abdominal pain; R11.2 Nausea with vomiting, unspecified; K29.70 Gastritis, unspecified, without bleeding; K62.5 Hemorrhage of anus and rectum; I10 Essential (primary) hypertension; E78.5 Hyperlipidemia, unspecified; E11.9 Type 2 diabetes mellitus without complications; K57.92 Diverticulitis of intestine, part unspecified, without perforation or abscess without bleeding; Z87.19 Personal history of other diseases of the digestive system; R12 Heartburn; R06.02 Shortness of breath; Z86.19 Personal history of other infectious and parasitic diseases; M19.90 Unspecified osteoarthritis, unspecified site; M54.2 Cervicalgia; M54.89 Other dorsalgia; F32.9 Major depressive disorder, single episode, unspecified; F41.9 Anxiety disorder, unspecified; R51 Headache; G62.9 Polyneuropathy, unspecified; G25.81 Restless legs syndrome; J44.9 Chronic obstructive pulmonary disease, unspecified; G47.8 Other sleep disorders; G47.30 Sleep apnea, unspecified; R06.83 Snoring; Z87.442 Personal history of urinary calculi; F17.210 Nicotine dependence, cigarettes, uncomplicated; F12.20 Cannabis dependence, uncomplicated; Z88.0 Allergy status to penicillin; Z88.5 Allergy status to narcotic agent; Z79.899 Other long term (current) drug therapy

== ENCOUNTER 2017-02-25 14:07 | Emergency (ER) | payer BC ==
[~2017-02-25] VITALS: Ht 185.4 cm; Wt 115.4 kg
[~2017-02-25 14:07] MED LIST changes: -LIDOCAINE 2% INJ 100 MG/5 ML SDV (FOR ANES.) As Ordered ONE; -PROPOFOL 200 MG/20 ML VIAL As Ordered ONE
[2017-02-25] MEDS ORDERED: AMLO10TA2 (14:17)
[2017-02-25] MEDS ORDERED: PANT40TA2 (14:17)
[2017-02-25] MEDS ORDERED: XIFA550T (14:17)
[2017-02-25] MEDS ORDERED: ONDANSETRON 4MG/2ML VIAL (J2405) IV ONE (15:30)
[2017-02-25] MEDS ORDERED: NS 1,000 ML IV ONE (15:30)
[2017-02-25] MEDS ORDERED: KETOROLAC 30 MG/ML VIAL (J1885) IV ONE (15:30)
[2017-02-25] MEDS ORDERED: MORPHINE 4 MG/ML 1ML SYRINGE As Ordered ONE (16:16)
[2017-02-25] MEDS ORDERED: ISOVUE-370 76% 100ML VIAL (Q9967) As Ordered ONE (17:00)
[2017-02-25 18:29] LABS: ALBUMIN/GLOBULIN RATIO 1.14 (1.00-1.93); ALKALINE PHOSPHATASE 46 U/L (45-117); ALT/SGPT 31 U/L (12-78); AMYLASE 26 U/L (25-115); ANION GAP 12 MEQ/L (8-16); AST/SGOT 16 U/L (15-37); BILIRUBIN,DIRECT 0.1 MG/DL (0.0-0.2); BILIRUBIN,TOTAL 0.4 MG/DL (0.2-1.0); BLOOD UREA NITROGEN 23 MG/DL (7-18); CALCIUM LEVEL 8.9 MG/DL (8.5-10.1); CARBON DIOXIDE LEVEL 21 MEQ/L (21-32); CHLORIDE LEVEL 110 MEQ/L (98-107); CREATININE FOR GFR 0.69 MG/DL (0.70-1.30); GLOMERULAR FILTRATION RATE > 60.0 (>56); GLUCOSE, FASTING 76 MG/DL (70-105); POTASSIUM SERUM 3.9 MEQ/L (3.5-5.1); SODIUM LEVEL 143 MEQ/L (136-145); TOTAL PROTEIN 7.5 GM/DL (6.4-8.2)
[2017-02-25 18:30] LABS: BASO % 0.3 % (0.0-1.0); EOS % 0.6 % (0.0-3.0); LARGE UNSTAINED CELL # 0.2 K/mm3 (0.0-0.4); LARGE UNSTAINED CELL % 2.1 % (0.0-4.0); LYMPH # 1.9 K/mm3 (1.5-4.5); MEAN CORPUSCULAR HEMOGLOBIN 31.9 pg (27.0-33.0); MEAN CORPUSCULAR VOLUME 91.1 fl (80.0-96.0); MONO # 0.5 K/mm3 (0.0-0.8); NEUTROPHILS # 5.6 K/mm3 (1.8-7.7); NEUTROPHILS % 67.9 % (36.0-66.0); PLATELET COUNT, AUTOMATED 192 k/mm3 (150-450); RED CELL DISTRIBUTION WIDTH 13.2 % (11.5-14.5); WHITE BLOOD COUNT 8.2 K/mm3 (4.0-10.0)
[2017-02-25] MEDS ORDERED: REGL10TA6 PO (19:12)
[2017-02-25 19:20] VITALS: BP 155/96
--- NOTE | 2017-02-26 08:15 | ECGEPIP ---
Stationary ECG Study [facility] - ED Test Date: 2017-02-25 Pat Name: LUDIVINA NAVARRO Department: Room: - Gender: M Communications Representative: FUAD : 1960 Requested By: Morgan Quiros PA-C Order Number: [id number] Reading MD: Favian Mcgarry Measurements Intervals [place] Rate: 67 P: 53 CO: 185 QRS: -12 QRSD: 94 T: 45 QT: 403 QTc: 426 Interpretive Statements SINUS RHYTHM SIMILAR TO 12/29/16 Electronically Signed On 02-26-2017 8:15:45 EDT by Favian Mcgarry
--- NOTE | 2017-02-26 14:46 | REP ---
CT ABDOMEN AND PELVIS WITH IV CONTRAST: TECHNIQUE: Axial contrast enhanced images from the lung bases to the pubic symphysis using 100 mL Isovue 370 intravenous contrast material with multiplanar reformations. COMPARISON: 12/28/2016. Visualized lung bases demonstrate fibrotic changes with a subcentimeter nodular opacity in the lingula which is stable. There is a tiny subcentimeter nodule in the right lobe of the liver which is unchanged. The spleen, adrenals, pancreas, and kidneys are essentially unremarkable. There does appear to be a subcentimeter calculus in the upper right renal collecting system as well as a few tiny cysts of the right kidney. There is no hydronephrosis bilaterally. There is no abdominal aortic aneurysm. There is no adenopathy. There is no free air or free fluid. There is a small umbilical hernia containing fat. There is no evidence of appendicitis. There is no evidence of diverticulitis or other evidence of bowel wall thickening. Urinary bladder is mildly distended and grossly unremarkable. IMPRESSION: No acute abnormalities detected. Stable chronic findings with no change since prior CT of 12/28/2016. Signed by Joshua Castro MD 02/26/2017 04:01 P
== END 2017-02-25 19:29 | disposition home or self-care (01) ==
LOC: M ED 14:07
DX: G89.29 Other chronic pain (principal); R10.32 Left lower quadrant pain; R11.2 Nausea with vomiting, unspecified; I25.10 Atherosclerotic heart disease of native coronary artery without angina pectoris; I25.2 Old myocardial infarction; E11.9 Type 2 diabetes mellitus without complications; I10 Essential (primary) hypertension; J44.9 Chronic obstructive pulmonary disease, unspecified; E66.9 Obesity, unspecified; F17.200 Nicotine dependence, unspecified, uncomplicated; Z95.5 Presence of coronary angioplasty implant and graft; Z79.899 Other long term (current) drug therapy; Z88.0 Allergy status to penicillin; Z88.5 Allergy status to narcotic agent
CPT/HCPCS: 74177; 80048; 80076; 82150; 82550; 82553; 83605; 83690; 85025; 93005; 96361; 96374; 96375; 99284; J1885; J2405; Q9967

== ENCOUNTER → 2017-03-09 | Outpatient (CLI) | payer BC ==
[~2017-03-09] MED LIST changes: +AMLO10TA2; +PANT40TA2; +REGL10TA6 PO; +XIFA550T
--- NOTE | 2017-03-09 11:44 | REP ---
Gastric emptying nuclear scintigraphy: History: Vomiting. Abdominal pain in the left lower quadrant. Weight loss. Technique: 1.02 mCi of technetium-99m sulfur colloid was ingested in two scrambled eggs and 6 ounces of water and sequential anterior and posterior images are acquired for an 89-minute imaging observation period. Regions of interest are drawn around the stomach to plot gastric emptying. Scintigraphic findings: Expected T1/2 is 90 minutes. 35 % emptying is observed in this patient during the 89-minute imaging observation period, for a calculated T1/2 in this patient of 131 minutes. Impression: Slightly delayed gastric emptying. Signed by Darek Lazo MD 03/09/2017 11:35 A
== END ==
LOC: M RAD 08:52
PROVIDERS: ATTEND Physician Assistant
DX: R11.10 Vomiting, unspecified (principal); R10.32 Left lower quadrant pain
CPT/HCPCS: 78264; A9541

== ENCOUNTER → 2017-04-01 | Outpatient (CLI) | payer BC ==
[2017-04-01 20:10] LABS: ALBUMIN 4.5 GM/DL (3.2-5.2); ALBUMIN/GLOBULIN RATIO 1.36 (1.00-1.93); ALKALINE PHOSPHATASE 44 U/L (45-117); ALT/SGPT 28 U/L (12-78); ANION GAP 9 MEQ/L (8-16); AST/SGOT 16 U/L (15-37); BILIRUBIN,TOTAL 0.5 MG/DL (0.2-1.0); BLOOD UREA NITROGEN 10 MG/DL (7-18); CALCIUM LEVEL 8.7 MG/DL (8.5-10.1); CARBON DIOXIDE LEVEL 27 MEQ/L (21-32); CHLORIDE LEVEL 103 MEQ/L (98-107); CHOLESTEROL LEVEL 122 MG/DL (<200); CREATININE FOR GFR 0.67 MG/DL (0.70-1.30); FREE T4 1.05 NG/DL (0.76-1.46); GLOMERULAR FILTRATION RATE > 60.0 (>56); GLUCOSE, FASTING 73 MG/DL (70-105); POTASSIUM SERUM 3.9 MEQ/L (3.5-5.1); SODIUM LEVEL 139 MEQ/L (136-145); TOTAL PROTEIN 7.8 GM/DL (6.4-8.2); TRIGLYCERIDES LEVEL 162 MG/DL (<150)
== END ==
LOC: M LAB 18:01
PROVIDERS: ATTEND Physician Assistant
DX: E78.2 Mixed hyperlipidemia (principal)

== ENCOUNTER → 2017-04-01 | Outpatient (CLI) | payer BC ==
[2017-04-01 20:01] LABS: ALBUMIN 4.5 GM/DL (3.2-5.2); ALBUMIN/GLOBULIN RATIO 1.36 (1.00-1.93); BILIRUBIN,DIRECT 0.1 MG/DL (0.0-0.2); BILIRUBIN,TOTAL 0.4 MG/DL (0.2-1.0); TOTAL PROTEIN 7.8 GM/DL (6.4-8.2)
== END ==
LOC: M LAB 17:54
PROVIDERS: ATTEND Physician Assistant
DX: R11.10 Vomiting, unspecified (principal)

== ENCOUNTER → 2017-05-31 | Outpatient (CLI) | payer BC ==
[~2017-05-31] MED LIST changes: +GASTROGRAFIN SOLUTION 30ML (Q9963) As Ordered ONE; +ISOVUE-370 76% 100ML VIAL (Q9967) As Ordered ONE
--- NOTE | 2017-06-01 08:19 | REP ---
PELVIC CT WITH CONTRAST: CLINICAL: Left groin pain. TECHNIQUE: Axial contrast enhanced images of the pelvis using oral (per protocol) and 100 mL Isovue 370 intravenous contrast material with coronal and sagittal reformations. COMPARISON: 02/25/2017. FINDINGS: Fat containing umbilical hernia remained relatively stable and currently measures approximately 2.5 cm. Visualized enteric system is without obstruction or acute inflammatory process. Normal terminal ileum and appendix identified in the right lower quadrant. Pelvis demonstrates postsurgical changes along the anterior midline of the bladder which may represent surgery for prior urachal remnant. The prostate gland and seminal vesicles within normal limits. Visualized vascular structures are relatively unremarkable. No adenopathy. No pelvic fluid or ascites. No solitary mass lesion. Surrounding musculoskeletal structures are intact. The groin/inguinal canals appear relatively symmetric and normal without evidence for hernia, fluid collection or mass lesion. IMPRESSION: 1. 2.5 cm fat containing supraumbilical hernia unchanged. 2. Postsurgical changes involving the anterior midline bladder may represent surgery for urachal remnant. 3. Normal appearance to the left groin. 4. No acute pelvic pathology appreciated. Unreviewed
== END ==
LOC: M RAD 13:43
PROVIDERS: ATTEND Surgery
DX: K42.9 Umbilical hernia without obstruction or gangrene (principal)
CPT/HCPCS: 72193; Q9963; Q9967

== ENCOUNTER 2017-08-09 11:12 | Emergency (ER) | payer BC ==
[2017-08-09] MEDS: CYCLOBENZAPRINE 10 MG TAB PO (13:56)
[2017-08-09] MEDS: PERCOCET 5MG/325MG TAB PO (13:56)
[2017-08-09] MEDS: KETOROLAC 60 MG/2 ML VIAL (J1885) IM (13:56)
== END 2017-08-09 15:24 | disposition home or self-care (01) ==
LOC: M ED 11:12
DX: M54.17 Radiculopathy, lumbosacral region (principal); E11.9 Type 2 diabetes mellitus without complications; F17.200 Nicotine dependence, unspecified, uncomplicated; Z79.84 Long term (current) use of oral hypoglycemic drugs; Z79.899 Other long term (current) drug therapy; Z88.5 Allergy status to narcotic agent; Z88.0 Allergy status to penicillin
CPT/HCPCS: J1885

== ENCOUNTER → 2017-09-02 | Outpatient (CLI) | payer BC ==
[2017-09-02 08:51] LABS: CREATININE FOR GFR 0.77 MG/DL (0.70-1.30); GLOMERULAR FILTRATION RATE > 60.0 (>56)
[2017-09-02 08:51] LABS: BLOOD UREA NITROGEN 14 MG/DL (7-18)
== END ==
LOC: M LAB 07:52
DX: M47.817 Spondylosis without myelopathy or radiculopathy, lumbosacral region (principal); M79.1 Myalgia; M54.16 Radiculopathy, lumbar region; M96.1 Postlaminectomy syndrome, not elsewhere classified
CPT/HCPCS: 82565

== ENCOUNTER → 2017-09-03 | Outpatient (CLI) | payer BC | LOC: M PLARAD 07:43 | DX: M47.817 Spondylosis without myelopathy or radiculopathy, lumbosacral region (principal); M79.1 Myalgia; M54.16 Radiculopathy, lumbar region; M96.1 Postlaminectomy syndrome, not elsewhere classified | CPT/HCPCS: 72158 ==

== ENCOUNTER 2017-12-09 09:28 | Emergency (ER) | payer BC ==
[2017-12-09] MEDS: ONDANSETRON 4MG/2ML VIAL (J2405) IV (10:11)
[2017-12-09] MEDS: MORPHINE 4 MG/ML 1ML VIAL/SYRINGE (J2270) IV (10:12)
[2017-12-09] MEDS: NS 1,000 ML IV (10:12)
[2017-12-09 10:25] LABS: BASO # 0.1 10^3/uL (0.0-0.2); BASO % 0.6 % (0.0-1.0); EOS % 0.2 % (0.0-3.0); HEMATOCRIT 45.9 % (42.0-52.0); HEMOGLOBIN 16.2 g/dl (13.5-17.5); IMMATURE GRANULOCYTE % 0.1 % (0-3.0); LYMPH # 1.4 10^3/uL (1.5-4.5); LYMPH % 16.4 % (24.0-44.0); MEAN CORPUSCULAR HEMOGLOBIN 31.1 pg (27.0-33.0); MEAN CORPUSCULAR HGB CONC 35.3 g/dl (32.0-36.5); MEAN CORPUSCULAR VOLUME 88.1 fl (80.0-96.0); MONO # 0.5 10^3/uL (0.0-0.8); NEUTROPHILS # 6.5 10^3/uL (1.8-7.7); NEUTROPHILS % 76.7 % (36.0-66.0); PLATELET COUNT, AUTOMATED 223 10^3/uL (150-450); RED BLOOD COUNT 5.21 10^6/uL (4.30-6.10); RED CELL DISTRIBUTION WIDTH 13.6 % (11.5-14.5); WHITE BLOOD COUNT 8.5 10^3/uL (4.0-10.0)
[2017-12-09] MEDS ORDERED: ISOVUE-370 76% 100ML VIAL (Q9967) As Ordered (10:46)
[2017-12-09 10:49] LABS: ALBUMIN 4.2 GM/DL (3.2-5.2); ALKALINE PHOSPHATASE 60 U/L (45-117); ALT/SGPT 33 U/L (12-78); ANION GAP 5 MEQ/L (8-16); AST/SGOT 16 U/L (7-37); BILIRUBIN,TOTAL 0.3 MG/DL (0.2-1.0); BLOOD UREA NITROGEN 13 MG/DL (7-18); CALCIUM LEVEL 9.3 MG/DL (8.5-10.1); CARBON DIOXIDE LEVEL 25 MEQ/L (21-32); CHLORIDE LEVEL 109 MEQ/L (98-107); CREATININE FOR GFR 0.67 MG/DL (0.70-1.30); GLOMERULAR FILTRATION RATE > 60.0 (>56); GLUCOSE, FASTING 104 MG/DL (70-100); LIPASE 107 U/L (73-393); POTASSIUM SERUM 3.8 MEQ/L (3.5-5.1); SODIUM LEVEL 139 MEQ/L (136-145); TOTAL PROTEIN 8.4 GM/DL (6.4-8.2)
[2017-12-09] MEDS: KETOROLAC 30 MG/ML VIAL (J1885) IV (11:16)
[2017-12-09 12:48] LABS: APPEARANCE, URINE CLEAR (CLEAR); BACTERIA, URINE AUTO NEGATIVE (NEGATIVE); BILIRUBIN, URINE AUTO NEGATIVE (NEGATIVE); BLOOD, URINE BLOOD NEGATIVE (NEGATIVE); COLOR, URINE STRAW (YELLOW); GLUCOSE, URINE (UA) AUTO NEGATIVE (NEGATIVE); KETONE, URINE AUTO NEGATIVE (NEGATIVE); LEUKOCYTE ESTERASE, URINE AUTO NEGATIVE (NEGATIVE); NITRITE, URINE AUTO NEGATIVE (NEGATIVE); PROTEIN, URINE AUTO NEGATIVE (NEGATIVE); RBC, URINE AUTO 0 /HPF (0-3); SPECIFIC GRAVITY URINE AUTO 1.024 (1.002-1.035); SQUAMOUS EPITHELIAL CELL UR AU 0 /HPF (0-6); UROBILINOGEN, URINE AUTO 0.2 mg/dL (0.0-2.0); WBC, URINE AUTO 0 /HPF (0-3)
== END 2017-12-09 13:09 | disposition home or self-care (01) ==
LOC: M ED 09:28
DX: R10.32 Left lower quadrant pain (principal); R11.2 Nausea with vomiting, unspecified; R19.7 Diarrhea, unspecified; I10 Essential (primary) hypertension; K21.9 Gastro-esophageal reflux disease without esophagitis; K57.32 Diverticulitis of large intestine without perforation or abscess without bleeding; G62.9 Polyneuropathy, unspecified; J44.9 Chronic obstructive pulmonary disease, unspecified; K76.0 Fatty (change of) liver, not elsewhere classified; Z95.5 Presence of coronary angioplasty implant and graft; Z72.0 Tobacco use; Z79.899 Other long term (current) drug therapy; Z88.0 Allergy status to penicillin; Z88.5 Allergy status to narcotic agent
CPT/HCPCS: J2270

== ENCOUNTER → 2018-03-02 | Outpatient (CLI) | payer BC | LOC: M WUC 09:13 | DX: M25.532 Pain in left wrist (principal) | CPT/HCPCS: 73110 ==

== ENCOUNTER 2018-03-21 08:47 | Emergency (ER) | payer OTHER, BC ==
[2018-03-21] MEDS: PERCOCET 5MG/325MG TAB PO (09:26)
== END 2018-03-21 10:39 | disposition home or self-care (01) ==
LOC: M ED 08:47
DX: S20.212A Contusion of left front wall of thorax, initial encounter (principal); V40.5XXA Car driver injured in collision with pedestrian or animal in traffic accident, initial encounter; Y92.410 Unspecified street and highway as the place of occurrence of the external cause; Y93.9 Activity, unspecified; Y99.9 Unspecified external cause status; E11.9 Type 2 diabetes mellitus without complications; I10 Essential (primary) hypertension; J44.9 Chronic obstructive pulmonary disease, unspecified; F41.9 Anxiety disorder, unspecified; Z87.442 Personal history of urinary calculi; Z72.0 Tobacco use; Z79.84 Long term (current) use of oral hypoglycemic drugs; Z79.899 Other long term (current) drug therapy; Z88.0 Allergy status to penicillin; Z88.5 Allergy status to narcotic agent
CPT/HCPCS: 71101

== ENCOUNTER → 2018-05-24 | Outpatient (CLI) | payer BC | LOC: M WUC 10:33 | DX: S20.211A Contusion of right front wall of thorax, initial encounter (principal); M25.511 Pain in right shoulder; M19.011 Primary osteoarthritis, right shoulder; M50.30 Other cervical disc degeneration, unspecified cervical region; X58.XXXA Exposure to other specified factors, initial encounter; Y92.9 Unspecified place or not applicable | CPT/HCPCS: 71101 ==

== ENCOUNTER 2018-06-20 08:44 | Emergency (ER) | payer BC ==
[~2018-06-20] VITALS: Ht 185.4 cm; Wt 104.5 kg
[~2018-06-20 08:44] MED LIST changes: -AMLO10TA2; +AMLO10TA4 PO; +BUPR50TA PO; +CYCL10TA PO; +DICY20TA11; +FLOM0.4C39 PO; -FLOM5CAP PO; -GASTROGRAFIN SOLUTION 30ML (Q9963) As Ordered ONE; -IBUP200C10 PO; +IBUP200C25 PO; -ISOVUE-370 76% 100ML VIAL (Q9967) As Ordered ONE; +KETO10TAB PO; +LOSA-4; +LOSA-4 PO; -LOSA100T36; -LOSA100T36 PO; -PANT40TA2; +PANT40TA3; +PERC5TAB12 PO; +ZOFR4TAB14 PO; -ZOFR4TAB3 PO
[2018-06-20] MEDS ORDERED: ATOR1TAB19 (08:55)
[2018-06-20] MEDS ORDERED: PERCOCET 5MG/325MG TAB PO ONE (09:15)
--- NOTE | 2018-06-20 09:28 | REP ---
Clinical: Trauma. Fall. Technique: Neutral and frog lateral views of the left hip. Findings: Generalized age-related changes noted. No acute fracture or dislocation. Surrounding soft tissues normal. Impression: No acute fracture or dislocation. Electronically Signed by Matt Gallego MD 06/20/2018 09:20 A
[2018-06-20] MEDS ORDERED: IBUP-1022 PO (10:05)
[2018-06-20 10:22] VITALS: BP 131/102
== END 2018-06-20 10:22 | disposition home or self-care (01) ==
LOC: M ED 08:44
DX: S70.02XA Contusion of left hip, initial encounter (principal); W19.XXXA Unspecified fall, initial encounter; E11.42 Type 2 diabetes mellitus with diabetic polyneuropathy

== ENCOUNTER 2018-08-18 12:08 | Emergency (ER) | payer BC ==
[~2018-08-18] VITALS: Ht 185.4 cm; Wt 102.3 kg
[2018-08-18 12:08] VITALS: BP 144/102
[~2018-08-18 12:08] MED LIST changes: -AMLO10TA4 PO; +AMLO10TA5 PO; +ATOR1TAB19; -GABA800T; -GABA800T PO; +GABA800T4; +GABA800T4 PO; +IBUP-1022 PO; -LOSA-4; -LOSA-4 PO; +LOSA100T50; +LOSA100T50 PO
[2018-08-18] MEDS ORDERED: NORCO, ANEXSIA 5/325MG TABLET (HYDROcodone/ACETAMINOPHEN) PO ONE (12:45)
[2018-08-18] MEDS ORDERED: NORCOTAB PO (12:56)
--- NOTE | 2018-08-18 13:46 | REP ---
RIGHT WRIST COMPLETE: 08/18/2018. COMPARISON: 08/01/2007. CLINICAL HISTORY: Trauma. FINDINGS: Four views show distal radius and ulna intact. There is soft tissue swelling over the dorsal aspect of the wrist and distal forearm. I see no visible or displaced fracture, avulsion, joint space abnormality, subluxation, or other focal bone lesion. Metacarpals grossly intact. IMPRESSION: 1. Soft tissue swelling distal forearm and dorsal aspect of the wrist without visible or displaced fracture, avulsion, or other disruption of the wrist joint. Electronically Signed by Maury Orozco MD 08/18/2018 07:29 P
== END 2018-08-18 13:06 | disposition home or self-care (01) ==
LOC: M ED 12:08
DX: S60.811A Abrasion of right wrist, initial encounter (principal); S60.211A Contusion of right wrist, initial encounter; W22.8XXA Striking against or struck by other objects, initial encounter; Y92.89 Other specified places as the place of occurrence of the external cause; Y93.9 Activity, unspecified; Y99.0 Civilian activity done for income or pay; Z98.61 Coronary angioplasty status; E11.40 Type 2 diabetes mellitus with diabetic neuropathy, unspecified; R51 Headache; R07.9 Chest pain, unspecified; E78.00 Pure hypercholesterolemia, unspecified; I10 Essential (primary) hypertension; J44.9 Chronic obstructive pulmonary disease, unspecified; Z87.01 Personal history of pneumonia (recurrent); Z72.0 Tobacco use; G47.30 Sleep apnea, unspecified; K21.9 Gastro-esophageal reflux disease without esophagitis; K57.32 Diverticulitis of large intestine without perforation or abscess without bleeding; Z87.442 Personal history of urinary calculi; K76.0 Fatty (change of) liver, not elsewhere classified; M54.5 Low back pain; F41.9 Anxiety disorder, unspecified; F32.9 Major depressive disorder, single episode, unspecified; Z79.84 Long term (current) use of oral hypoglycemic drugs; Z79.899 Other long term (current) drug therapy; Z88.5 Allergy status to narcotic agent; Z88.0 Allergy status to penicillin

== ENCOUNTER 2018-11-08 10:45 | Emergency (ER) | payer BC ==
[~2018-11-08] VITALS: Ht 185.4 cm; Wt 100.9 kg
[~2018-11-08 10:45] MED LIST changes: -/CELE20CA PO; +CELE1CAP4 PO; +HYDR-3715 PO; -NORC1TAB4 PO; +NORC1TAB7 PO; +ZOFR4TAB16 PO
[2018-11-08 11:47] LABS: BASO % 0.5 % (0.0-1.0); EOS # 0.1 10^3/uL (0.0-0.50); EOS % 0.7 % (0.0-3.0); HEMOGLOBIN 16.1 g/dl (13.5-17.5); LYMPH # 2.1 10^3/uL (1.5-4.5); LYMPH % 24.5 % (24.0-44.0); MEAN CORPUSCULAR HEMOGLOBIN 31.3 pg (27.0-33.0); MEAN CORPUSCULAR HGB CONC 34.3 g/dl (32.0-36.5); MEAN CORPUSCULAR VOLUME 91.3 fl (80.0-96.0); MONO # 0.7 10^3/uL (0.0-0.8); MONO % 8.3 % (0.0-5.0); NEUTROPHILS # 5.7 10^3/uL (1.8-7.7); NEUTROPHILS % 65.7 % (36.0-66.0); PLATELET COUNT, AUTOMATED 201 10^3/uL (150-450); RED BLOOD COUNT 5.15 10^6/uL (4.30-6.10); WHITE BLOOD COUNT 8.7 10^3/uL (4.0-10.0)
[2018-11-08 12:16] LABS: BLOOD UREA NITROGEN 13 MG/DL (7-18); CALCIUM LEVEL 9.1 MG/DL (8.5-10.1); CARBON DIOXIDE LEVEL 27 MEQ/L (21-32); CHLORIDE LEVEL 108 MEQ/L (98-107); CREATININE FOR GFR 0.77 MG/DL (0.70-1.30); GLOMERULAR FILTRATION RATE > 60.0 (>56); GLUCOSE, FASTING 82 MG/DL (70-100); POTASSIUM SERUM 3.7 MEQ/L (3.5-5.1); SODIUM LEVEL 140 MEQ/L (136-145)
--- NOTE | 2018-11-08 12:58 | REP ---
CT of the abdomen and pelvis without IV or bowel contrast for left flank pain: Comparisons are 09/28/2018, 12/28/2016, 04/26/2012 and 928 07/2006. There is a nonobstructive 5 x 7 mm right renal calculus, not significantly changed from 12/28/2016. No other renal calculi are identified on the right on the left. There is no hydronephrosis on the right on the left. There is no perinephric stranding on the right on the left. No ureteral calculi are identified on the right on the left. There are no bladder calculi. The visualized lung shafer are unremarkable. There is a 2.4 cm hypodense lesion in the medial segment of the hepatic left lobe. On prior studies with IV contrast this lesion enhances, however, is unchanged in size from 03/19/2007, therefore likely benign. Follow-up hepatic MRI might be considered for further evaluation. The gallbladder, pancreas, spleen and adrenals are unremarkable. The abdominal aorta and periaortic area are unchanged and unremarkable. There is no bowel distension or obstruction. There are occasional diverticula in the descending colon, not significantly changed. There is no CT evidence of acute diverticulitis. There is no pneumoperitoneum or ascites. There is a fat-containing hernia at the superior margin of the umbilicus, unchanged. Pelvis: The appendix is unremarkable. There is no ascites or adenopathy. The bladder is unremarkable. There are postsurgical changes in the lumbar spine L5 S1. Impression: There is no hydronephrosis, hydroureter or perinephric stranding. There is a nonobstructive right renal calculus as described. There is a stable lesion in the hepatic left lobe as described. Follow-up hepatic MRI might be considered. Descending colon diverticulosis without diverticulitis. Fat-containing hernia at the superior margin of the umbilicus, unchanged. Electronically Signed by Joshua Felix MD 11/08/2018 12:49 P
[2018-11-08] MEDS ORDERED: KETOROLAC TROMETHAMINE 10 MG TAB PO ONE (13:30)
[2018-11-08 13:53] LABS: ALBUMIN 4.1 GM/DL (3.2-5.2); ALT/SGPT 32 U/L (12-78); BILIRUBIN,DIRECT < 0.1 MG/DL (0.0-0.2); BILIRUBIN,TOTAL 0.4 MG/DL (0.2-1.0); LIPASE 428 U/L (73-393); TOTAL PROTEIN 8.2 GM/DL (6.4-8.2)
[2018-11-08 14:30] VITALS: BP 165/109
[2018-11-08] MEDS ORDERED: ACETAMINOPHEN 500 MG TAB PO ONE (14:45)
--- NOTE | 2018-11-08 15:11 | REP ---
Scrotal ultrasound for right testicular pain: Comparison is 09/28/2018. The right testis measures 4.3 x 1.8 x 2.8 cm. Left testis measures 3.0 by 2.2 x 2.7 cm. The testes are in the low normal size range. There are no testicular masses. There is vascular flow in both testes. The Doppler resistive index of the testicular parenchymal arteries is 0.69 on the right is 0.71 on the left. There are bilateral hydroceles. The right epididymal head measures 7.6 mm. The left epididymal head measures 11 point 9 mm. There is no increased vascular flow in the left epididymis with color Doppler ultrasound, compatible with left epididymitis. There is a left scrotal lorne no clinical significance. Impression: Findings are compatible with left epididymitis. There is vascular flow in both testes. There are no testicular masses. There are bilateral hydroceles. Electronically Signed by Joshua Felix MD 11/08/2018 03:02 P
[2018-11-08] MEDS ORDERED: LEVO500T3 PO (16:16)
[2018-11-08 17:57] LABS: CHLAMYDIA DNA AMPLIFICATION NEGATIVE (NEGATIVE); GC DNA AMPLIFICATION NEGATIVE (NEGATIVE)
--- NOTE | 2018-11-08 21:08 | ED PDOC ---
Post-Departure Follow-Up dr vinny muñiz faxed formal report of ct abd/p for fu Mellisa Swanson MD November 08, 2018 21:08
== END 2018-11-08 16:25 | disposition home or self-care (01) ==
LOC: M ED 10:45
DX: N45.1 Epididymitis (principal); N20.0 Calculus of kidney; E11.40 Type 2 diabetes mellitus with diabetic neuropathy, unspecified; J44.9 Chronic obstructive pulmonary disease, unspecified; I10 Essential (primary) hypertension; E78.5 Hyperlipidemia, unspecified; K21.9 Gastro-esophageal reflux disease without esophagitis; G47.33 Obstructive sleep apnea (adult) (pediatric); F41.9 Anxiety disorder, unspecified; Z79.899 Other long term (current) drug therapy; Z79.84 Long term (current) use of oral hypoglycemic drugs; Z88.5 Allergy status to narcotic agent; F17.210 Nicotine dependence, cigarettes, uncomplicated

== ENCOUNTER 2019-01-07 13:50 | Emergency (ER) | payer BC ==
[~2019-01-07] VITALS: Ht 185.4 cm; Wt 90.9 kg
[~2019-01-07 13:50] MED LIST changes: +LEVO500T3 PO
--- NOTE | 2019-01-07 15:06 | REP ---
Right tibia and fibula series: Four views. History: Trauma. Findings: Four views of the right tib-fib area show normal bones, joints and soft tissues. No fracture or subluxation is seen. Achilles calcaneal spurring is noted. Impression: No fracture noted. Electronically Signed by Darek Lazo MD 01/07/2019 02:57 P
[2019-01-07] MEDS ORDERED: LIDOCAINE 1% MDV 20ML VIAL SC ONE (15:15)
[2019-01-07 15:51] VITALS: BP 138/89
== END 2019-01-07 15:52 | disposition home or self-care (01) ==
LOC: M ED 13:50
DX: S81.811A Laceration without foreign body, right lower leg, initial encounter (principal); S80.11XA Contusion of right lower leg, initial encounter; W27.0XXA Contact with workbench tool, initial encounter; Y92.099 Unspecified place in other non-institutional residence as the place of occurrence of the external cause; Y93.9 Activity, unspecified; Y99.9 Unspecified external cause status; Z72.0 Tobacco use; Z79.899 Other long term (current) drug therapy; Z88.0 Allergy status to penicillin; Z88.5 Allergy status to narcotic agent

== ENCOUNTER → 2019-07-10 | Outpatient (CLI) | payer BC ==
[~2019-07-10] MED LIST changes: +METF-791; -METF500T4
--- NOTE | 2019-07-11 01:46 | REP ---
Clinical: Nontraumatic pain Technique: AP, lateral, bilateral oblique views left hand . Findings: The osseous structures and joint spaces are intact and normal. There is no evidence for acute fracture or dislocation. Surrounding soft tissues are unremarkable. No subcutaneous emphysema or radiodense foreign body. Impression: Age-appropriate left hand series . No acute fracture or dislocation. Electronically Signed by Matt Gallego MD 07/11/2019 01:37 A
== END ==
LOC: M WUC 12:02
PROVIDERS: ATTEND Internal Medicine
DX: M79.642 Pain in left hand (principal)

== ENCOUNTER → 2019-08-15 | Outpatient (CLI) | payer BC ==
--- NOTE | 2019-08-15 08:31 | REP ---
Low-dose lung screening chest CT: Comparison is the chest CT with IV contrast dated 12/19/2010. The study is performed without IV contrast. The images are presented at lung windowing only. There is a 4 mm lung nodule inferiorly in the lingula, unchanged from the prior study, likely a granuloma. There are no other lung nodules or masses. There are no infiltrates or pleural effusions. Impression: Stable 4 mm nodule inferiorly in the lingula, unchanged, likely a granuloma. Category II low-dose lung screening chest CT. The probability of malignancy is less than 1%. Depending on risk factors consider annual follow-up low-dose lung screening CT. Electronically Signed by Joshua Felix MD 08/15/2019 08:23 A
== END ==
LOC: M RAD 07:52
PROVIDERS: ATTEND Internal Medicine
DX: F17.210 Nicotine dependence, cigarettes, uncomplicated (principal)

== ENCOUNTER → 2019-09-01 | Outpatient (CLI) | payer BC ==
[2019-09-01 12:56] LABS: BLOOD UREA NITROGEN 17 MG/DL (7-18); CALCIUM LEVEL 9.3 MG/DL (8.5-10.1); CARBON DIOXIDE LEVEL 28 MEQ/L (21-32); CHLORIDE LEVEL 105 MEQ/L (98-107); CREATININE FOR GFR 0.76 MG/DL (0.70-1.30); GLOMERULAR FILTRATION RATE > 60.0 (>56); GLUCOSE, FASTING 87 MG/DL (70-100); POTASSIUM SERUM 4.3 MEQ/L (3.5-5.1); SODIUM LEVEL 139 MEQ/L (136-145)
--- NOTE | 2019-09-01 15:18 | ECGEPIP ---
[facility] Test Date: 2019-09-01 Pat Name: LUDIVINA STONE Department: Room: - Gender: Male [employer] Molder: [place] : 1960 Requested By: OTIS Abel Order Number: [id number] Reading MD: Joe Worrell Measurements Intervals [place] Rate: 68 P: 50 OK: 185 QRS: -18 QRSD: 107 T: 35 QT: 392 QTc: 418 Interpretive Statements SINUS RHYTHM similar to tracing done 02-25-17 Electronically Signed on 09-01-2019 15:17:34 EST by Joe Worrell
== END ==
LOC: M LAB 11:51
PROVIDERS: ATTEND Orthopaedic Surgery Hand Surgery
DX: I10 Essential (primary) hypertension (principal); Z79.899 Other long term (current) drug therapy

== ENCOUNTER → 2019-09-13 | Outpatient (REF) | payer BC | LOC: M LAB REF 15:17 | PROVIDERS: ATTEND Orthopaedic Surgery Hand Surgery | DX: M65.342 Trigger finger, left ring finger (principal) ==

== ENCOUNTER → 2020-01-16 | Outpatient (CLI) | payer BC ==
[~2020-01-16] MED LIST changes: -AMLO10TA5 PO; +AMLO1TAB25 PO; +BUPR-69 PO; -BUPR50TA PO; +CYCL-707 PO; -CYCL10TA PO; -METF-699 PO; -METF-791; +METF-817 PO; +METF-838; +PANT40TA29; -PANT40TA3
== END ==
LOC: M LABSMTC 09:38
PROVIDERS: ATTEND Family Medicine
DX: Z11.59 Encounter for screening for other viral diseases (principal); Z20.828 Contact with and (suspected) exposure to other viral communicable diseases
CPT/HCPCS: C9803; U0003

== ENCOUNTER → 2020-06-23 | Outpatient (CLI) | payer BC ==
--- NOTE | 2020-06-23 11:01 | REP ---
INDICATION: SHOULDER INJURY WITH PAIN COMPARISON: None. TECHNIQUE: Internal rotation, external rotation, and Y view. FINDINGS: Cortical irregularity and spurring at the acromioclavicular joint is appreciated along with small corticated density adjacent to the greater tuberosity suggesting arthritic changes and calcific tendinopathy. No acute fracture or dislocation. Subacromial space is within normal limits. IMPRESSION: Degenerative changes. No acute fracture or dislocation. <Electronically signed by Matt Gallego > 06/23/20 [id number]
== END ==
LOC: M WUC 10:19
PROVIDERS: ATTEND Physician Assistant
DX: M25.712 Osteophyte, left shoulder (principal); M19.012 Primary osteoarthritis, left shoulder; M25.512 Pain in left shoulder; W01.0XXA Fall on same level from slipping, tripping and stumbling without subsequent striking against object, initial encounter

== ENCOUNTER → 2020-08-08 | Outpatient (CLI) | payer SELFPAY ==
[~2020-08-08] MED LIST changes: -ESCI20TA PO; +ESCI20TA16 PO
== END ==
LOC: M LABSMTC 09:33
PROVIDERS: ATTEND Pediatrics
DX: Z20.822 Contact with and (suspected) exposure to COVID-19 (principal)

== ENCOUNTER → 2020-09-03 | Outpatient (CLI) | payer SELFPAY | LOC: M LABSMTC 09:49 | PROVIDERS: ATTEND Pediatrics | DX: Z20.828 Contact with and (suspected) exposure to other viral communicable diseases (principal) ==

== ENCOUNTER → 2020-11-26 | Outpatient (CLI) | payer BC ==
--- NOTE | 2020-11-26 08:25 | REP ---
INDICATION: NICOTINE DEPEND COMPARISON: 08/15/2019 TECHNIQUE: Axial noncontrast images from the thoracic inlet to the upper abdomen using low-dose lung screening technique (LDCT). FINDINGS: Lung shafer are relatively well aerated, clear/stable. 4 mm noncalcified nodule in the lingula is unchanged. No new consolidation, suspicious nodule or mass. No effusion. No pneumothorax. Tracheobronchial tree is patent. IMPRESSION: Lung-RADS category 2. Stable nodule in the lingula. Management recommendations include annual low-dose CT surveillance. <Electronically signed by Matt Glalego > 11/26/20 [id number]
== END ==
LOC: M RAD 07:37
PROVIDERS: ATTEND Internal Medicine
DX: F17.210 Nicotine dependence, cigarettes, uncomplicated (principal); Z12.2 Encounter for screening for malignant neoplasm of respiratory organs

== ENCOUNTER → 2020-12-18 | Outpatient (CLI) | payer BC ==
[2020-12-18 12:19] LABS: BASO % 0.3 % (0.0-1.0); EOS # 0.1 10^3/uL (0.0-0.5); EOS % 1.1 % (0.0-3.0); HEMATOCRIT 45.7 % (42.0-52.0); HEMOGLOBIN 15.5 g/dl (13.5-17.5); LYMPH # 2.5 10^3/uL (1.5-5.0); MEAN CORPUSCULAR HEMOGLOBIN 30.7 pg (27.0-33.0); MEAN CORPUSCULAR HGB CONC 33.9 g/dl (32.0-36.5); MEAN CORPUSCULAR VOLUME 90.5 fl (80.0-96.0); MONO # 0.6 10^3/uL (0.0-0.8); MONO % 8.8 % (2.0-8.0); NEUTROPHILS % 54.7 % (36.0-66.0); PLATELET COUNT, AUTOMATED 225 10^3/uL (150-450); RED BLOOD COUNT 5.05 10^6/uL (4.30-6.10); WHITE BLOOD COUNT 7.3 10^3/uL (4.0-10.0)
[2020-12-18 12:50] LABS: ALBUMIN 4.5 GM/DL (3.2-5.2); ALT/SGPT 33 U/L (12-78); BILIRUBIN,TOTAL 0.3 MG/DL (0.2-1.0); BLOOD UREA NITROGEN 18 MG/DL (7-18); CALCIUM LEVEL 9.2 MG/DL (8.5-10.1); CARBON DIOXIDE LEVEL 25 MEQ/L (21-32); CHLORIDE LEVEL 106 MEQ/L (98-107); CREATININE FOR GFR 0.73 MG/DL (0.70-1.30); GLOMERULAR FILTRATION RATE > 60.0 (>56); GLUCOSE, FASTING 101 MG/DL (70-100); POTASSIUM SERUM 4.1 MEQ/L (3.5-5.1); SODIUM LEVEL 137 MEQ/L (136-145); TOTAL PROTEIN 7.7 GM/DL (6.4-8.2)
== END ==
LOC: M WUC 09:44
PROVIDERS: ATTEND Physician Assistant
DX: R10.32 Left lower quadrant pain (principal)

== ENCOUNTER → 2020-12-19 | Outpatient (CLI) | payer BC ==
[~2020-12-19] MED LIST changes: +GASTROGRAFIN SOLUTION 30ML (Q9963) As Ordered ONE; +ISOVUE-370 76% 100ML VIAL As Ordered ONE
--- NOTE | 2020-12-19 10:42 | REP ---
INDICATION: LEFT LOWER QUAD PAIN X2 DAYS. COMPARISON: Multiple latest 11/08/2018 a noncontrast enhanced exam TECHNIQUE: Standard helical technique after the intravenous administration of 100 cc Isovue 70 and oral bowel preparatory contrast administration. FINDINGS: There is a stable nodule in the inferior lingula. There are no pleural or pericardial effusions. There is a peripheral nodular enhancing lesion in the lateral segment of the left lobe of the liver unchanged in size compared to the prior noncontrast enhanced examination and unchanged in appearance compared to the prior contrast enhanced examination of 12/09/2017. There are no new hepatic lesions. The gallbladder, spleen, pancreas, adrenal glands, and kidneys are essentially unchanged. There is a stable nonobstructing right nephrolith and a small unchanged right renal cyst. The abdominal aorta and para-aortic regions are within normal limits. The bowel loops and the mesenteries are within normal limits and essentially unchanged. There is stable appearing descending colon diverticulosis. Sign there is no free fluid or free air. There is no mass or adenopathy. The abdominal aorta and para-regions are within normal limits. Bone window technique throughout the examination shows L5-S1 postoperative changes. There is no evidence of an acute osseous lesion. Impression IMPRESSION: 1. No acute intra-abdominal or intrapelvic disease. 2. Chronic changes as described above. <Electronically signed by Tucker Hill > 12/19/20 [id number]
== END ==
LOC: M RAD 08:09
PROVIDERS: ATTEND Physician Assistant
DX: R10.32 Left lower quadrant pain (principal)
CPT/HCPCS: 74177; Q9963; Q9967

== ENCOUNTER 2021-09-27 10:21 | Emergency (ER) | payer BC ==
[~2021-09-27] VITALS: Ht 182.9 cm; Wt 103.2 kg
[~2021-09-27 10:21] MED LIST changes: -DICY20TA11; +DICY20TA20; -GASTROGRAFIN SOLUTION 30ML (Q9963) As Ordered ONE; -ISOVUE-370 76% 100ML VIAL As Ordered ONE; -LEVO500T3 PO; +LEVO500T4 PO; +LOSA100T45; +LOSA100T45 PO; -LOSA100T50; -LOSA100T50 PO
[2021-09-27] MEDS ORDERED: CELE1CAP9 (10:29)
[2021-09-27] MEDS ORDERED: KETOROLAC 30 MG/ML 1ML VIAL IV ONE (11:40)
[2021-09-27 12:10] LABS: BASO # 0.1 10^3/uL (0.0-0.2); BASO % 0.6 % (0.0-1.0); EOS # 0.1 10^3/uL (0.0-0.5); EOS % 1.6 % (0.0-3.0); HEMATOCRIT 46.2 % (42.0-52.0); HEMOGLOBIN 15.9 g/dl (13.5-17.5); LYMPH # 3.3 10^3/uL (1.5-5.0); LYMPH % 40.8 % (24.0-44.0); MEAN CORPUSCULAR HEMOGLOBIN 31.1 pg (27.0-33.0); MEAN CORPUSCULAR HGB CONC 34.4 g/dl (32.0-36.5); MEAN CORPUSCULAR VOLUME 90.2 fl (80.0-96.0); MONO # 0.5 10^3/uL (0.0-0.8); MONO % 6.6 % (2.0-8.0); NEUTROPHILS % 50.2 % (36.0-66.0); PLATELET COUNT, AUTOMATED 245 10^3/uL (150-450); RED BLOOD COUNT 5.12 10^6/uL (4.30-6.10)
[2021-09-27] MEDS ORDERED: ISOVUE-370 76% 100ML VIAL As Ordered ONE (12:14)
[2021-09-27 12:32] LABS: ALBUMIN 4.3 GM/DL (3.2-5.2); ALT/SGPT 32 U/L (12-78); BILIRUBIN,DIRECT < 0.1 MG/DL (0.0-0.2); BILIRUBIN,TOTAL 0.3 MG/DL (0.2-1.0); LIPASE 213 U/L (73-393); TOTAL PROTEIN 8.1 GM/DL (6.4-8.2)
[2021-09-27 13:33] VITALS: BP 123/91
== END 2021-09-27 13:35 | disposition home or self-care (01) ==
LOC: M ED 10:21
DX: S39.011A Strain of muscle, fascia and tendon of abdomen, initial encounter (principal); E11.9 Type 2 diabetes mellitus without complications; E78.5 Hyperlipidemia, unspecified; I10 Essential (primary) hypertension; Z87.442 Personal history of urinary calculi; F41.8 Other specified anxiety disorders; F32.A Depression, unspecified; K57.92 Diverticulitis of intestine, part unspecified, without perforation or abscess without bleeding; F17.200 Nicotine dependence, unspecified, uncomplicated; F10.10 Alcohol abuse, uncomplicated; Z79.84 Long term (current) use of oral hypoglycemic drugs; Z88.0 Allergy status to penicillin; Z88.5 Allergy status to narcotic agent; Y92.9 Unspecified place or not applicable; Y93.9 Activity, unspecified; Y99.9 Unspecified external cause status
CPT/HCPCS: 74177; 80047; 80076; 81001; 83690; 85025; 96374; 99284; J1885; Q9967

== ENCOUNTER → 2022-04-20 | Outpatient (CLI) | payer BC ==
[~2022-04-20] MED LIST changes: +CELE1CAP9; +LEVO1TAB39 PO; -LEVO500T4 PO
== END ==
LOC: M LABSMTC 10:32
PROVIDERS: ATTEND Anesthesiology
DX: Z01.812 Encounter for preprocedural laboratory examination (principal); Z11.52 Encounter for screening for COVID-19

== ENCOUNTER 2022-04-23 08:39 | Day surgery (SDC) | payer BC ==
[~2022-04-23] VITALS: Ht 185.4 cm; Wt 97.1 kg
[~2022-04-23 08:39] MED LIST changes: +NS 1,000 ML IV ONE
[2022-04-23] MEDS ORDERED: LIDOCAINE 2% 100MG/5ML SDV (FOR ANES.) As Ordered ONE (08:54)
[2022-04-23] MEDS ORDERED: propofoL 200 MG/20 ML VIAL As Ordered ONE (08:54)
[2022-04-23 11:15] VITALS: BP 130/68
== END 2022-04-23 11:22 | disposition home or self-care (01) ==
LOC: M OPP 08:39
PROVIDERS: ATTEND Internal Medicine Gastroenterology
DX: Z12.11 Encounter for screening for malignant neoplasm of colon (principal); K63.5 Polyp of colon; K64.8 Other hemorrhoids; Z88.0 Allergy status to penicillin; Z88.5 Allergy status to narcotic agent; G47.30 Sleep apnea, unspecified; G25.81 Restless legs syndrome; E11.9 Type 2 diabetes mellitus without complications; K74.60 Unspecified cirrhosis of liver; F32.9 Major depressive disorder, single episode, unspecified; F41.9 Anxiety disorder, unspecified; F17.200 Nicotine dependence, unspecified, uncomplicated; Z84.0 Family history of diseases of the skin and subcutaneous tissue

== ENCOUNTER → 2022-06-17 | Outpatient (CLI) | payer BC ==
[~2022-06-17] MED LIST changes: -NS 1,000 ML IV ONE
== END ==
LOC: M RAD 14:46
PROVIDERS: ATTEND Internal Medicine
DX: F17.210 Nicotine dependence, cigarettes, uncomplicated (principal)

== ENCOUNTER → 2023-06-09 | Outpatient (CLI) | payer BC ==
[~2023-06-09] MED LIST changes: +CELE0.09; -CELE1CAP9; -LOSA100T45; -LOSA100T45 PO; +LOSA100T46; +LOSA100T46 PO
[2023-06-09 09:35] LABS: HEMATOCRIT 47.4 % (42.0-52.0); MEAN CORPUSCULAR HEMOGLOBIN 30.7 pg (27.0-33.0); MEAN CORPUSCULAR HGB CONC 33.8 g/dl (32.0-36.5); MEAN CORPUSCULAR VOLUME 90.8 fl (80.0-96.0); PLATELET COUNT, AUTOMATED 217 10^3/uL (150-450); RED BLOOD COUNT 5.22 10^6/uL (4.30-6.10); WHITE BLOOD COUNT 7.4 10^3/uL (4.0-10.0)
[2023-06-09 10:12] LABS: ALBUMIN 4.4 G/DL (3.2-5.2); ALKALINE PHOSPHATASE 50 U/L (46-116); ALT/SGPT 28 U/L (7.0-40); AST/SGOT 12 U/L (<34); BILIRUBIN,TOTAL 0.3 MG/DL (0.3-1.2); BLOOD UREA NITROGEN 19 MG/DL (9-23); CALCIUM LEVEL 9.6 MG/DL (8.3-10.6); CARBON DIOXIDE LEVEL 26 MMOL/L (20-31); CHLORIDE LEVEL 106 MMOL/L (98-107); CREATININE FOR GFR 0.65 MG/DL (0.70-1.30); GLOMERULAR FILTRATION RATE > 60.0 (>49); GLUCOSE, FASTING 102 MG/DL (74-106); POTASSIUM SERUM 4.6 MMOL/L (3.5-5.1); SODIUM LEVEL 140 MMOL/L (136-145); TOTAL PROTEIN 7.5 G/DL (5.7-8.2)
== END ==
LOC: M EKG 09:02
PROVIDERS: ATTEND Orthopaedic Surgery
DX: Z01.818 Encounter for other preprocedural examination (principal); M54.12 Radiculopathy, cervical region

== ENCOUNTER → 2024-04-24 | Outpatient (CLI) | payer BC ==
[~2024-04-24] MED LIST changes: +GABA-1635; +GABA-1635 PO; -GABA800T4; -GABA800T4 PO
== END ==
LOC: M WUC 10:26
PROVIDERS: ATTEND Nurse Practitioner Family
DX: R07.82 Intercostal pain (principal); W11.XXXA Fall on and from ladder, initial encounter